=== PATIENT | female | born 1930 | race Caucasian/White ===

== ENCOUNTER 2020-12-18 13:27 | Inpatient (IN) | payer MEDICARE ==
[~2020-12-18] VITALS: Ht 145 cm; Wt 58.4 kg
[2020-12-18] MEDS ORDERED: ATROPINE INJECTION 1 MG/10 ML SYR (ABBOTT) INJ ONE (16:26)
[2020-12-18] MEDS ORDERED: EPINEPHrine 0.1 MG/ML 10 ML (HOSPIRA) SYR INJ ONE (16:26)
[2020-12-18] MEDS ORDERED: polyethylene glycoL POWDER 17 GM (MIRALAX) PACK PO PRN (16:45)
[2020-12-18] MEDS ORDERED: hydrALAZINE (APESOLINE) 20 MG/ML VIAL IV PRN (16:45)
[2020-12-18] MEDS ORDERED: MELATONIN 3 MG TABLET PO PRN (16:45)
[2020-12-18] MEDS ORDERED: ONDANSETRON 4 MG (ZOFRAN) ORAL DISSOLVE TAB PO PRN (16:45)
--- NOTE | 2020-12-18 17:04 | Consultation-Cardiology ---
HPI-Cardiology Cardiology Consultation: Date of Consultation 12/18/2020 Date of Admission 12/18/2020 Attending Physician Camille Flores MD Admitting Physician Lorelei Martinez DO Consulting Physician MAXX BONDS JR, MD HPI: Time Seen by a Provider: 16:59 Chief Complaint: Reason for consultation: Chest pain. I had the pleasure of seeing Flor in the cardiac stepdown unit at [facility] in [place], [place] this afternoon. She has a history of hypertension, aortic stenosis, and arthritis. She follows with a open pit quarry supervisor in [place], [place]. She just saw him several months ago and from her description, it sounds as though she was told she has severe aortic stenosis and may need aortic valve replacement in the not so distant future. She is supposed to have a follow-up echocardiogram in the next few months. She does not normally have chest discomfort, dyspnea or any history of syncope. Today she was at [employer] and suddenly developed severe shortness of breath at rest. Her right shoulder hurt but she was not sure if this is related to her arthritis since she frequently gets right shoulder pain. She was in touch with her son and had him take her to the emergency room in [place]. She was found to be markedly hypertensive and was started on intravenous nitroglycerin. She was subsequently transferred to our facility for further treatment and evaluation. In the outside emergency room, she was given 2 sublingual nitroglycerin and started on intravenous nitroglycerin. After receiving the sublingual nitroglycerin, her shortness of breath improved. She is not short of breath at this point in time. Her right shoulder still hurts but this is chronic. She denies any chest discomfort. She denies paroxysmal nocturnal dyspnea, orthopnea, palpitations, lightheadedness, syncope, or ankle edema. She did take all of her antihypertensive medication this morning. Certain portions of this document may have been dictated utilizing voice recognition technology. Inherent to this technology, typographical and grammatical errors may exist. As much as I am diligent to identify and correct these mistakes, some errors may remain in the document. Review of Systems-Cardiology Review of Systems Other comments Review of 10 organ systems is as per the history of present illness, otherwise negative. EBA-Qzvmup-Lldcua Hx Past Medical History PMH As described under Assessment. Family Medical History Family Medical History: The patient does not know of any family history of premature coronary artery disease. Allergies and Home Medications Allergies Coded Allergies: No Allergy Information Available (Unverified , 12/18/20) Patient Home Medication List Home Medication List Reviewed: Yes Exam Physical Exam General: Alert. No acute distress. Well nourished and appears stated age. Eye: Extraocular movements are intact. Conjunctivae are clear. There are no xanthelasma. HENT: Normocephalic. Atraumatic. Carotid pulsations 2/2 with bilateral radiated murmur. Neck: Jugular venous pressure does not appear elevated. No thyromegaly appreciated. Respiratory: Lungs have crackles at the right base. Respirations are non- labored. Breath sounds are equal. Symmetrical chest wall expansion. Cardiovascular: Normal rate. Regular rhythm. 3/6 systolic ejection murmur. No gallop. Point of maximal impulse is not appear displaced. Good pulses equal in all extremities. No edema. Gastrointestinal: Soft. Normal bowel sounds. Skin: Skin turgor is normal. There is no pallor. Musculoskeletal: No kyphosis or scoliosis appreciated. Neurologic: Alert and oriented to person, place, time. Cranial nerves 3-12 appear grossly intact. The patient has good motor tone strength in the upper and lower extremities bilaterally. Psychiatric: Cooperative. Appropriate mood & affect. ECG Impression ECG Comment Sinus rhythm with borderline left axis deviation and -[address] changes and small, nondiagnostic lateral Q waves. Diagnosis/Problems Diagnosis/Problems (1) Chest pain Assessment & Plan: When I spoke to the emergency room physician at the outside hospital, I was told the patient was having chest discomfort. Upon my interview, it sounds more as though she was just severely short of breath. I suspect she may have had flash pulmonary edema related to hypertensive urgency superimposed on probable severe aortic stenosis. Her intravenous nitroglycerin was discontinued by the rescue squad in route. I will give her an extra dose of carvedilol now. I will obtain a chest x-ray in the morning. I will also reach out to her regular open pit quarry supervisor to get a copy of the recent echocardiogram. Given that this occurred, she may need the aortic valve replacement sooner rather than later. This could still be done electively. (2) Hypertensive urgency Assessment & Plan: Her blood pressure is presently markedly elevated at 227/102 mmHg. As above, I will give her an extra dose of carvedilol now. Her outpatient antihypertensive medications have been resumed by the hospitalist. We may need to make some additional adjustments to her medication in light of the markedly elevated blood pressure. (3) Aortic stenosis Assessment & Plan: As above, I will contact her regular open pit quarry supervisor to get a copy of the recent echocardiogram. I do not see any reason to repeat the echocardiogram at the present time. (4) Abnormal ECG Assessment & Plan: She has borderline abnormal ECG as outlined above. However, there is no definitive evidence of previous myocardial infarction or ischemia at rest. If we do determine that she now needs aortic valve replacement, she would need a cardiac catheterization prior to aortic valve replacement whether or not she undergoes a SAVR or BELINDA. Given her age and underlying arthritis, she would probably be most appropriate to undergo BELINDA as opposed to SAVR. (5) Primary hypertension Assessment & Plan: We will proceed as above. MAXX BONDS JR, MD Dec 18, 2020 17:04
[2020-12-18] MEDS ORDERED: MULT-1136 PO (17:18)
[2020-12-18] MEDS ORDERED: PANT40TA52 PO (17:18)
[2020-12-18] MEDS ORDERED: ESTR10TA9 VG (17:18)
[2020-12-18] MEDS ORDERED: TURM500C4 PO (17:18)
[2020-12-18] MEDS ORDERED: MONT10TA32 PO (17:18)
[2020-12-18] MEDS ORDERED: LEVO50CA4 PO (17:18)
[2020-12-18] MEDS ORDERED: POTA10TA36 PO (17:18)
[2020-12-18] MEDS ORDERED: ASPI-999 PO (17:18)
[2020-12-18] MEDS ORDERED: FURO20TA4 PO (17:18)
[2020-12-18] MEDS ORDERED: DICY10CA12 PO (17:18)
[2020-12-18] MEDS ORDERED: FLUT9.9S NS (17:18)
[2020-12-18] MEDS ORDERED: MAGN400T50 PO (17:18)
[2020-12-18] MEDS ORDERED: OXYC1TAB15 PO (17:18)
[2020-12-18] MEDS ORDERED: CYAN50009 PO (17:18)
[2020-12-18] MEDS ORDERED: CARV6.252 PO (17:18)
[2020-12-18] MEDS ORDERED: HYDR-3924 PO (17:18)
[2020-12-18] MEDS ORDERED: LOSA100T57 PO (17:18)
[2020-12-18 19:00] VITALS: BP 131/61
[2020-12-18] MEDS: ACETAMINOPHEN 325 MG TABLET PO PRN ×2 (19:08→23:13)
[2020-12-18] MEDS ORDERED: NITROGLYCERIN 2% OINT 1 GM UNIT DOSE PACKET ONE ×2 (19:52→23:59)
[2020-12-18 20:00] VITALS: BP 119/51
[2020-12-18] MEDS: DOCUSATE SODIUM 100 MG (COLACE) CAP PO SCH (20:58)
[2020-12-18] MEDS: hydrALAZINE (APRESOLINE) 25 MG TAB PO SCH (20:59)
[2020-12-18] MEDS: SENNOSIDES 8.6 MG (SENOKOT) TAB PO SCH (20:59)
[2020-12-18 21:00] VITALS: BP 141/69
[2020-12-18 22:00] VITALS: BP 121/57
[2020-12-18 23:00] VITALS: BP 126/85
[2020-12-19] VITALS (9 sets, daily range): BP systolic 142–174; BP diastolic 58–87
[2020-12-19] MEDS ORDERED: LIDOCAINE 2% VISCOUS 15 ML UDC ONE
[2020-12-19] MEDS ORDERED: ANTACID SUSP 30 ML UDC (MYLANTA) PO ONE
[2020-12-19] MEDS ORDERED: LIDOCAINE 2% VISCOUS 15 ML UDC PO ONE
[2020-12-19] MEDS: ONDANSETRON 4 MG/2 ML (SDV) Z0FRAN IV PRN (03:38)
[2020-12-19 04:52] LABS: BASOPHILS % (AUTO) 0 % (0-10); EOSINOPHILS # (AUTO) 0.3 10^3/uL (0.0-0.3); EOSINOPHILS % (AUTO) 4 % (0-10); HEMATOCRIT 31 % (35-52); HEMOGLOBIN 9.9 g/dL (11.5-16.0); LYMPHOCYTES # (AUTO) 1.5 10^3/uL (1.0-4.0); LYMPHOCYTES % (AUTO) 21 % (12-44); MEAN CORPUSCULAR HEMOGLOBIN 30 pg (25-34); MEAN CORPUSCULAR HGB CONC 33 g/dL (32-36); MEAN CORPUSCULAR VOLUME 93 fL (80-99); MEAN PLATELET VOLUME 10.6 fL (9.0-12.2); MONOCYTES # (AUTO) 0.7 10^3/uL (0.0-1.0); MONOCYTES % (AUTO) 10 % (0-12); NEUTROPHILS # (AUTO) 4.8 10^3/uL (1.8-7.8); NEUTROPHILS % (AUTO) 65 % (42-75); PLATELET COUNT 163 10^3/uL (130-400); WHITE BLOOD COUNT 7.4 10^3/uL (4.3-11.0)
[2020-12-19 05:05] LABS: CHLORIDE 102 MMOL/L (98-107); POTASSIUM 3.8 MMOL/L (3.6-5.0); SODIUM 135 MMOL/L (135-145)
[2020-12-19 05:06] LABS: CALCIUM 9.3 MG/DL (8.5-10.1); GLUCOSE 97 MG/DL (70-105)
[2020-12-19 05:08] LABS: CARBON DIOXIDE 22 MMOL/L (21-32)
[2020-12-19 05:10] LABS: CREATININE SERUM 1.06 MG/DL (0.60-1.30); GFR ESTIMATED 49
[2020-12-19 05:11] LABS: BUN/CREATININE RATIO 25
[2020-12-19] MEDS: LEVOTHYROXINE 50 MCG (LEVOTHROID) TAB PO SCH (05:57)
[2020-12-19] MEDS: hydrALAZINE (APRESOLINE) 25 MG TAB PO SCH ×3 (05:57→20:31)
[2020-12-19] MEDS: NITROGLYCERIN 2% OINT 1 GM UNIT DOSE PACKET TOP SCH ×4 (06:04→23:55)
[2020-12-19] MEDS ORDERED: NITROGLYCERIN 2% OINT 1 GM UNIT DOSE PACKET ONE (06:04)
[2020-12-19] MEDS ORDERED: FLU QUAD HIGH DOSE 240 MCG/0.7 ML 2021-22 (FLUZONE) IM ONE (07:30)
--- NOTE | 2020-12-19 08:37 | History & Physical-Hospitalist ---
History of Present Illness HPI/Chief Complaint Pt is an 89yoCF with a PMH of HTN, OA and aortic stenosis who presented to outside ER due to shortness of breath. Patient states she was at [employer] and not exerting herself and developed severe shortness of breath very suddenly. She has had 1 episode of this in the past. She thought it was due to dehydration at that time. Her son took her to the emergency department in [facility]. She was found to be very hypertensive and started on nitroglycerin IV and transferred here for cardiology evaluation. Her symptoms have much improved and she denies any shortness of breath. She denies any chest pain at any time. She does follow with cardiology in [facility], Dr. Kong. She believes she had an echo done within the past month but is unsure of the results. Source: patient Date Seen 12/19/20 Time Seen by a Provider: 07:45 Attending Physician Camille Flores MD PCP Lorelei Martinez DO Referring Physician Date of Admission Dec 18, 2020 at 16:25 Home Medications & Allergies Home Medications Reviewed patient Home Medication Reconciliation performed by pharmacy medication reconciliations coating technician and/or nursing. Patients Allergies have been reviewed. Allergies Allergies Coded Allergies atenolol (Unverified Allergy, Unknown, 12/18/20) clindamycin (Unverified Allergy, Unknown, 12/18/20) HIVES AND RASH gabapentin (Unverified Allergy, Unknown, 12/18/20) hydrocodone (Unverified Allergy, Unknown, 12/18/20) PRURITUS, RASH lisinopril (Unverified Allergy, Unknown, 12/18/20) COUGH AND HIVES tizanidine (Unverified Allergy, Unknown, 12/18/20) amlodipine (Unverified Adverse Reaction, Unknown, 12/18/20) SWELLING OF FEET AND LEGS baclofen (Unverified Adverse Reaction, Unknown, 12/18/20) DIZZINESS, SLEEPINESS calcium (Unverified Adverse Reaction, Unknown, 12/18/20) INCREASED CALCIUM LEVELS clonidine (Unverified Adverse Reaction, Unknown, 12/18/20) DROPS BLOOD PRESSURE "TOO FAST" naproxen (Unverified Adverse Reaction, Unknown, 12/18/20) STOMACH ISSUES Past Buymaxg-Ejzzxx-Dwrmgi Hx Patient Social History Employed/Student: retired Tobacco Use?: No Smoking Status: Never a Smoker Smokeless Tobacco Frequency: Never a User Use of E-Cig and/or Vaping dev: No Substance use?: No Alcohol Use?: No Pt feels they are or have been: No Immunizations Up To Date First/Initial COVID19 Vaccinat: 05/04/2020 Second COVID19 Vaccination Abdoul: 06/01/2020 Tetanus Booster (TDap): Unknown Hepatitis A: No Hepatitis B: No Current Status status: No status: No Advance Directives: Yes Advance Directive Location: Family to bring in copy Communicates: Verbally Primary Language: Turkish Preferred Spoken Language: Turkish Is interpretation needed?: No Sensory deficits: Vision impairment, Hearing impairment Implanted or Applied Medical D: Orthopedic hardware Past Medical History Surgeries: Adenoidectomy, Appendectomy, Orthopedic (back, knees replaced), Tonsillectomy Hypertension, Valvular Heart Disease Arthritis Family Medical History Reviewed Nursing Family Hx Heart Disease (dad) Review of Systems Constitutional: No chills, No diaphoresis, No fever Respiratory: No cough, No orthopnea; short of breath Cardiovascular: No chest pain, No edema, No palpitations, No syncope Gastrointestinal: No abdominal pain, No diarrhea, No nausea, No vomiting Genitourinary: No dysuria, No frequency Musculoskeletal: joint pain (chronic, arthritis) Skin: no symptoms reported Psychiatric/Neurological: No Symptoms Reported Physical Exam Physical Exam Vital Signs Vital Signs - First Documented 12/18/20 12/18/20 17:27 18:21 Temp 36.6 Pulse Ox 97 O2 Delivery Room Air Capillary Refill : Height, Weight, BMI Height: '" Weight: lbs. oz. kg; 27.39 BMI Method: General Appearance: No Apparent Distress, WD/WN HEENT: PERRL/EOMI, Moist Mucous Membranes Neck: Normal Inspection, Supple Respiratory: Lungs Clear, No Respiratory Distress Cardiovascular: Regular Rate, Rhythm, No Edema, Systolic Murmur Gastrointestinal: Normal Bowel Sounds, Non Tender, Soft Extremity: Normal Capillary Refill, No Calf Tenderness, No Pedal Edema Neurologic/Psychiatric: Alert, Oriented x3, Normal Mood/Affect; No Aphasia, No Facial Droop Results Results/Procedures Labs Laboratory Tests 12/19/20 04:44 Patient resulted labs reviewed. Assessment/Plan Admission Diagnosis Dyspnea Admission Status: Observation Assessment and Plan Dyspnea Hypertensive Emergency HTN Likely due to hypertensive emergency with SBP of 227 on arrival Cardiology consulted telemetry Requesting records from Dr Kong Now resolved, pending echo results could possibly DC home today Continue home antihypertensives GERONIMO ALVAREZ MD Dec 19, 2020 08:37
--- NOTE | 2020-12-19 08:44 | Cardiology Progress Note ---
Progress Note-Cardiology Events since last exam Date Seen by Provider: Dec 19, 2020 Time Seen by Provider: 08:43 Events since last exam I am seeing her for chest pain and aortic stenosis. She had chest pressure and dyspnea off and on all evening. This morning she feels better. She denies palpitations, syncope, or ankle edema. Certain portions of this document may have been dictated utilizing voice recogni tion technology. Inherent to this technology, typographical and grammatical errors may exist. As much as I am diligent to identify and correct these mistakes, some errors may remain in the document. Vitals Last set of Vitals Signs Vital Signs 12/19/20 12/19/20 07:57 08:04 Temp 36.8 Pulse 59 Resp 16 B/P (MAP) 142/59 (86) Pulse Ox 94 O2 Delivery Room Air Labs Labs Laboratory Tests 12/19/20 04:44 Exam Vital Signs Vital Signs Date Time Temp Pulse Resp B/P (MAP) Pulse Ox O2 Delivery O2 Flow Rate FiO2 12/19/20 08:04 94 Room Air 12/19/20 07:57 36.8 59 16 142/59 (86) Physical Exam General: Alert. No acute distress. Eye: No xanthelasma. HENT: Normocephalic. Neck: Jugular venous pressure does not appear elevated. Respiratory: Lungs are clear to auscultation. Respirations are non-labored. Breath sounds are equal. Symmetrical chest wall expansion. Cardiovascular: Normal rate. Regular rhythm. 3/6 systolic ejection murmur. No gallop. No edema. Gastrointestinal: Soft. Normal bowel sounds. Skin: Warm. Dry. Neurologic: Alert and oriented to person, place, time. Cranial nerves 3-11 grossly intact. Psychiatric: Cooperative. Appropriate mood & affect. Labs Laboratory Tests Test 12/18/20 21:25 12/19/20 04:44 Range/Units Troponin I < 0.028 < 0.028 <0.028 NG/ML White Blood Count 7.4 4.3-11.0 10^3/uL Red Blood Count 3.29 L 3.80-5.11 10^6/uL Hemoglobin 9.9 L 11.5-16.0 g/dL Hematocrit 31 L 35-52 % Mean Corpuscular Volume 93 80-99 fL Mean Corpuscular Hemoglobin 30 25-34 pg Mean Corpuscular Hemoglobin Concent 33 32-36 g/dL Red Cell Distribution Width 12.5 10.0-14.5 % Platelet Count 163 130-400 10^3/uL Mean Platelet Volume 10.6 9.0-12.2 fL Immature Granulocyte % (Auto) 0 % Neutrophils (%) (Auto) 65 42-75 % Lymphocytes (%) (Auto) 21 12-44 % Monocytes (%) (Auto) 10 0-12 % Eosinophils (%) (Auto) 4 0-10 % Basophils (%) (Auto) 0 0-10 % Neutrophils # (Auto) 4.8 1.8-7.8 10^3/uL Lymphocytes # (Auto) 1.5 1.0-4.0 10^3/uL Monocytes # (Auto) 0.7 0.0-1.0 10^3/uL Eosinophils # (Auto) 0.3 0.0-0.3 10^3/uL Basophils # (Auto) 0.0 0.0-0.1 10^3/uL Immature Granulocyte # (Auto) 0.0 0.0-0.1 10^3/uL Sodium Level 135 135-145 MMOL/L Potassium Level 3.8 3.6-5.0 MMOL/L Chloride Level 102 98-107 MMOL/L Carbon Dioxide Level 22 21-32 MMOL/L Anion Gap 11 5-14 MMOL/L Blood Urea Nitrogen 26 H 7-18 MG/DL Creatinine 1.06 0.60-1.30 MG/DL Estimat Glomerular Filtration Rate 49 BUN/Creatinine Ratio 25 Glucose Level 97 70-105 MG/DL Calcium Level 9.3 8.5-10.1 MG/DL Diagnosis/Problems Diagnosis/Problems (1) Chest pain Assessment & Plan: Exact etiology unclear. When I spoke to her yesterday, she was more complaining of dyspnea as opposed to chest discomfort however, last night she was having chest pressure. There are no acute ischemic changes on her electrocardiogram and her troponin levels are negative. The chest discomfort and dyspnea could be related to the aortic stenosis. We are still waiting for her recent echocardiogram that was done in [place], [place] about 3 weeks ago. I will obtain a chest x-ray this morning. Given that this occurred, she may need the aortic valve replacement sooner rather than later. This could still be done electively. (2) Hypertensive urgency Assessment & Plan: Her blood pressure was markedly elevated at 227/102 mmHg. This has improved overnight. I would avoid over treating the hypertension in light of the aortic stenosis. (3) Aortic stenosis Assessment & Plan: As above, we are awaiting to get a copy of the recent echocardiogram. I do not see any reason to repeat the echocardiogram at the present time since she states her recent echocardiogram was just 3 weeks ago. (4) Abnormal ECG Assessment & Plan: She has borderline abnormal ECG as outlined above. However, there is no definitive evidence of previous myocardial infarction or ischemia at rest. If we do determine that she now needs aortic valve replacement, she would need a cardiac catheterization prior to aortic valve replacement whether or not she undergoes a SAVR or BELINDA. Given her age and underlying arthritis, she would probably be most appropriate to undergo BELINDA as opposed to SAVR. (5) Primary hypertension Assessment & Plan: We will proceed as above. (6) Chronic kidney disease, stage 3 Assessment & Plan: We will need to monitor this closely in the event that she needs a cardiac catheterization. (7) Overweight Assessment & Plan: She may benefit from a small degree of weight loss. MAXX BONDS JR, MD Dec 19, 2020 08:44
[2020-12-19] MEDS: LOSARTAN 100 MG (COZAAR) TABLET PO SCH (08:47)
[2020-12-19] MEDS: DOCUSATE SODIUM 100 MG (COLACE) CAP PO SCH ×2 (08:47→20:31)
[2020-12-19] MEDS: SENNOSIDES 8.6 MG (SENOKOT) TAB PO SCH ×2 (08:47→20:31)
[2020-12-19] MEDS: ASPIRIN 81 MG CHEW (CHILDREN'S ASA) PO SCH (08:47)
[2020-12-19 08:48] LABS: CHOLESTEROL 156 MG/DL (< 200); HDL CHOLESTEROL 33 MG/DL (40-60); TRIGLYCERIDES 174 MG/DL (<150); VLDL CHOLESTEROL 35 MG/DL (5-40)
[2020-12-19] MEDS ORDERED: PANTOPRAZOLE 40 MG (PROTONIX) TAB PO SCH (09:00)
--- NOTE | 2020-12-19 09:10 | Diagnostic Imaging Report ---
EXAMINATION: PA and lateral chest at 9:04 AM. INDICATION: Shortness of breath. COMPARISON: There are no prior studies available for comparison. FINDINGS: The heart size is at the upper limits of normal or slightly enlarged. There are mild chronic pulmonary changes evident but there is no sign of failure, pneumonia, or pleural effusion to indicate an acute abnormality. The mediastinum is not widened. The osseous structures are intact. There is orthopedic hardware overlying the lower cervical spine. There is also a total shoulder prosthesis in place on the left. In addition, there appears to have been a prior fusion of the upper lumbar spine. IMPRESSION: There is border line cardiomegaly but there is no evidence for an acute cardiopulmonary abnormality. Dictated by: Dictated on workstation # [id number]
[2020-12-19] MEDS ORDERED: LEVO-129 PO (09:24)
[2020-12-19] MEDS ORDERED: ESTR0.5T VG (09:24)
[2020-12-19] MEDS ORDERED: FLUT16SP22 NSEACH (09:24)
[2020-12-19] MEDS ORDERED: CYAN500T8 PO (09:24)
[2020-12-19] MEDS ORDERED: ASPI-1238 PO (09:24)
--- NOTE | 2020-12-19 10:05 | Physical Therapy Evaluation ---
PT Evaluation-General Medical Diagnosis Admission Date Dec 18, 2020 at 16:25 Medical Diagnosis: CP Onset Date: Dec 18, 2020 Therapy Diagnosis Therapy Diagnosis: debility/weakness Precautions Precautions/Isolations: Fall Prevention, Standard Precautions Referral Physician: Mark Reason for Referral: Evaluation/Treatment Medical History Pertinent Medical History: Arthritis, HTN Current History Transfer from [facility] ([place]) Reviewed History: Yes Social History Home: Apartment Prior Prior Level of Function SCALE: Activities may be completed with or without assistive devices. 8-Xtftagrcit-zhoautk completes the activity by him/herself with no assistance f rom a helper. 5-Set-up or Clean-up Assistance-helper sets up or cleans up; patient completes activity. [place] assists only prior to or following the activity. 4-Supervision or Touching Assistance-helper provides verbal cues and/or touching/steadying and/or contact guard assistance as patient completes activity. Assistance may be provided throughout the activity or intermittently. 3-Partial/Moderate Assistance-helper does LESS THAN HALF the effort. [place] lifts, holds or supports trunk or limbs, but provides less than half the effort. 2-Substantial/Maximal Assistance-helper does MORE THAN HALF the effort. [place] lifts or holds trunk or limbs and provides more than half the effort. 6-Xjktzpdrd-qkpfvf does ALL the effort. Patient does none of the effort to complete the activity. Or, the assistance of 2 or more helpers is required for the patient to complete the activity. If activity was not attempted, code reason: 7-Patient Refused. 9-Not Applicable-not attempted and the patient did not perform the activity before the current illness, exacerbation or injury. 10-Not Attempted due to Environmental Limitations-(lack of equipment, weather restraints, etc.). 88-Not Attempted due to Medical Conditions or Safety Concerns. Bed Mobility: 6 Transfers (B,C,W/C): 6 Gait: 6 Stairs: 6 Indoor Mobility (Ambulation): Independent Stairs: Independent Prior Device Use: cane PT Evaluation-Current Subjective Patient agrees to PT. Pain Numeric Pain Scale: 0-No Pain Location: No Pain Reported Objective Patient Orientation: Normal For Age ROM/Strength ROM Lower Extremities bilateral LE WFL Strength Lower Extremities 3+/5 grossly bilateral LE Integumentary/Posture Bowel Incontinence: No Bladder Incontinence: No Posture WFL Neuromuscular (Tone, Coordination, Reflexes) grossly intact Sensory Vision: Functional Hearing: Functional Transfers Roll Left to Right (QC): 6 Sit to Lying (QC): 6 Lying to Sitting/Side of Bed(Q: 6 Sit to Stand (QC): 4 Chair/Bup-gv-Vyibo Xfer(QC): 4 Toilet Transfer (QC): 4 SBA with OOB activity for safety Gait Does the Patient Walk?: Yes Mode of Locomotion: Walk Anticipated Mode of Locomotion: Walk Walk 10 feet (QC): 4 Walk 50 ft with 2 Turns(QC): 4 Walk 150 ft (QC): 4 Distance: 275' Gait Assistive Device: FWW Comments/Gait Description SBA/safe and functional gait sequence with no deviation Balance Sitting Static: Normal Sitting Dynamic: Normal Standing Static: Normal Standing Dynamic: Normal Assessment/Needs 89 y.o. female, will be seen short term by skilled PT to address functional strength and mobility to improve current LOF. Rehab Potential: Fair PT Mending Carrier Goals Custodial Goals PT Custodial Goals Time Frame: Dec 31, 2020 Roll Left & Right (QC): 6 Sit to Lying (QC): 6 Lying-Sitting on Side/Bed(QC): 6 Sit to Stand (QC): 6 Chair/Lpy-fj-Dwlhb Xfer(QC): 6 Toilet Transfer (QC): 6 Walk 10 feet (QC): 6 Walk 50ft with 2 Turns (QC): 6 Walk 150 ft (QC): 6 PT Plan Problem List Problem List: Activity Tolerance, Balance Treatment/Plan Treatment Plan: Continue Plan of Care Treatment Plan: Education, Functional Activity Sirena, Functional Strength, Gait, Safety, Therapeutic Exercise, Transfers Treatment Duration: Dec 31, 2020 Frequency: 6 times per week Estimated Hrs Per Day: .25 hour per day Patient and/or Family Agrees t: Yes Time/GCodes Time In: 750 Time Out: 807 Total Billed Treatment Time: 17 Total Billed Treatment 1 visit EVModC 17 min SOILA SUMNER PT Dec 19, 2020 10:05
--- NOTE | 2020-12-19 12:24 | Occupational Therapy Eval ---
OT Evaluation-General/PLF Medical Diagnosis Admission Date Dec 18, 2020 at 16:25 Medical Diagnosis: aortic stenosis Onset Date: Dec 18, 2020 Therapy Diagnosis Therapy Diagnosis: n/a Precautions Precautions/Isolations: Fall Prevention, Standard Precautions Referral Physician: Mark Kraus Reason: Evaluation/Treatment Medical History Pertinent Medical History: Arthritis, HTN Current History Pt transfer from [facility] ([place]) for further treatment and evaluation. She reports having an episode of SOB while at [facility]. In ER she was found to be hypertensive. Pt states that she lives alone in an apartment, ground level, zero steps. She was indep with ADLs, uses a cane for mobility. She receives assist with IADLs from her sons and a friend. She no longer drives. Reviewed History: Yes Social History Home: Apartment Current Living Status: Alone Entry Into Home: Level Entry ADL-Prior Level of Function SCALE: Activities may be completed with or without assistive devices. 1-Dauqhwdyuf-ucqikue completes the activity by him/herself with no assistance from a helper. 5-Set-up or Clean-up Assistance-helper sets up or cleans up; patient completes activity. Addison assists only prior to or following the activity. 4-Supervision or Touching Assistance-helper provides verbal cues and/or touching/steadying and/or contact guard assistance as patient completes activity. Assistance may be provided throughout the activity or intermittently. 3-Partial/Moderate Assistance-helper does LESS THAN HALF the effort. Addison lifts, holds or supports trunk or limbs, but provides less than half the effort. 2-Substantial/Maximal Assistance-helper does MORE THAN HALF the effort. Addison lifts or holds trunk or limbs and provides more than half the effort. 9-Mshnpizgv-idaasj does ALL the effort. Patient does none of the effort to complete the activity. Or, the assistance of 2 or more helpers is required for the patient to complete the activity. If activity was not attempted, code reason: 7-Patient Refused. 9-Not Applicable-not attempted and the patient did not perform the activity before the current illness, exacerbation or injury. 10-Not Attempted due to Environmental Limitations-(lack of equipment, weather restraints, etc.). 88-Not Attempted due to Medical Conditions or Safety Concerns. Self Care: Independent Functional Cognition: Independent DME/Equipment: Bath Chair, Grab Bars, Shower, Tall Toilet Drive Self: No OT Current Status Subjective Pt reports pain in abdominal region as 5/10. Possibly due to constipation she verbalizes. RN informed. Appearance Pt returned to supine in bed, all needs within reach, son and RN in room at OT ananda duran. Mental Status/Objective Patient Orientation: Person, Place, Time, Situation Attachments: IV, Telemetry Current Upper Extremity ROM Pt reports ROM limited by arthritis. Able to complete ~3/4 AROM R shoulder. Reduced hand/finger AROM secondary to arthritis. Education provided on use of built up handles and compensatory strategies during ADLs. HANSELE WFL ADL-Treatment On/Off Footwear (QC): 4 Toileting Hygiene (QC): 4 Supine>sit: SBA. Pt able to doff/chiquis janell socks with extra time only. She stood, ambulated to/from bathroom with SBA and use of walker. No unsteadiness exhibited. Able to lower to toilet and stand without assist. Clothing management not performed as pt only wearing gown. Pt likely does not require assist to complete as she demonstrates good/safe balance. No SOB exhibited during activity. Education provided on adaptive modifications pt can make to compensate for arthritis in hands. Education OT Patient Education: Correct positioning, Energy conservation, Modified ADL techniques, Progress toward Goal/Update tx plan, Purpose of tx/functional activities, Rehab process, Use of adapted equipment Teaching Recipient: Patient Teaching Methods: Demonstration, Discussion Response to Teaching: Verbalize Understanding, Return Demonstration OT Afloat Cryptologic Manager Goals Jail Goals 1=Demonstrate adherence to instructed precautions during ADL tasks. 2=Patient will verbalize/demonstrate understanding of assistive devices/modifications for ADL. 3=Patient will improve strength/tolerance for activity to enable patient to perform ADL's. OT Education/Plan Problem List/Assessment Assessment: No Skilled OT Needs ID'd Discharge Recommendations Plan/Recommendations: Discontinue OT Therapy Discharge Recommendati: Home & Family Treatment Plan/Plan of Care Treatment,Training & Education: Yes Patient would benefit from OT for education, treatment and training to promote independence in ADL's, mobility, safety and/or upper extremity function for ADL's. Plan of Care: ADL Retraining Treatment Duration: Dec 19, 2020 Frequency: 1 time per week Estimated Hrs Per Day: .25 hour per day Agreement: Yes Time/GCodes Start Time: 12:00 Stop Time: 12:17 Total Time Billed (hr/min): 17 Billed Treatment Time 1 visit, Ana Trujillo OT Dec 19, 2020 12:24
[2020-12-19] MEDS: ANTACID SUSP 30 ML UDC (MYLANTA) PO PRN ×2 (12:41→14:45)
[2020-12-19] MEDS: ACETAMINOPHEN 325 MG TABLET PO PRN ×2 (12:41→20:31)
[2020-12-19] MEDS ORDERED: CATHETER FLUSH 10 ML SYR IV PRN (16:30)
[2020-12-19] MEDS ORDERED: NS IV 1000 ML 1,000 ML IV ONE (16:30)
[2020-12-19] MEDS ORDERED: NITROGLYCERIN 2% OINT 1 GM UNIT DOSE PACKET TOP SCH (20:00)
[2020-12-19] MEDS: PANTOPRAZOLE 40 MG (PROTONIX) TAB PO SCH (20:31)
[2020-12-20] VITALS (24 sets, daily range): BP systolic 36–194; BP diastolic 24–122
[2020-12-20] MEDS ORDERED: NITROGLYCERIN 2% OINT 1 GM UNIT DOSE PACKET TOP SCH
[2020-12-20] MEDS: LEVOTHYROXINE 50 MCG (LEVOTHROID) TAB PO SCH (04:09)
[2020-12-20] MEDS: ACETAMINOPHEN 325 MG TABLET PO PRN (04:10)
[2020-12-20] MEDS: hydrALAZINE (APRESOLINE) 25 MG TAB PO SCH ×2 (04:10→16:33)
[2020-12-20 04:58] LABS: BASOPHILS # (AUTO) 0.1 10^3/uL (0.0-0.1); BASOPHILS % (AUTO) 1 % (0-10); EOSINOPHILS # (AUTO) 0.3 10^3/uL (0.0-0.3); EOSINOPHILS % (AUTO) 3 % (0-10); HEMATOCRIT 30 % (35-52); HEMOGLOBIN 9.8 g/dL (11.5-16.0); LYMPHOCYTES # (AUTO) 1.8 10^3/uL (1.0-4.0); LYMPHOCYTES % (AUTO) 18 % (12-44); MEAN CORPUSCULAR HEMOGLOBIN 31 pg (25-34); MEAN CORPUSCULAR HGB CONC 33 g/dL (32-36); MEAN CORPUSCULAR VOLUME 93 fL (80-99); MEAN PLATELET VOLUME 10.7 fL (9.0-12.2); MONOCYTES # (AUTO) 0.9 10^3/uL (0.0-1.0); MONOCYTES % (AUTO) 9 % (0-12); NEUTROPHILS # (AUTO) 6.8 10^3/uL (1.8-7.8); NEUTROPHILS % (AUTO) 69 % (42-75); PLATELET COUNT 166 10^3/uL (130-400); WHITE BLOOD COUNT 9.9 10^3/uL (4.3-11.0)
[2020-12-20 05:10] LABS: CALCIUM 9.2 MG/DL (8.5-10.1)
[2020-12-20 05:15] LABS: CREATININE SERUM 1.09 MG/DL (0.60-1.30)
[2020-12-20] MEDS ORDERED: NS IV 1000 ML 1,000 ML ONE (05:53)
[2020-12-20] MEDS: NITROGLYCERIN 2% OINT 1 GM UNIT DOSE PACKET TOP SCH (05:58)
[2020-12-20] MEDS ORDERED: HEParin 1000 UNIT/ML (10ML VIAL) FOR BOLUS ONE (07:33)
[2020-12-20] MEDS ORDERED: LIDOCAINE 1% INJ 20 ML 20 ML VIAL ONE ×2 (07:33→10:02)
[2020-12-20] MEDS ORDERED: HEParin (CATH LAB) 2,000 ML IV ONE (07:33)
[2020-12-20] MEDS ORDERED: VERAPAMIL 5 MG/2 ML (CALAN) VIAL IV ONE (07:38)
[2020-12-20] MEDS ORDERED: MIDAZOLAM 5 MG/5 ML (VERSED) VIAL ONE (07:38)
[2020-12-20] MEDS ORDERED: fentaNYL INJ 100 MCG/2 ML AMP ONE (07:38)
[2020-12-20] MEDS ORDERED: NITRO DRIP 25000 MCG/D5W 250 ML IV ONE (07:39)
--- NOTE | 2020-12-20 09:10 | Physical Therapy Progress Note ---
Therapy Progress Note Patient to have heart cath on this date. PT to resume in a.m. 12/21/20 SOILA SUMNER PT Dec 20, 2020 09:10
--- NOTE | 2020-12-20 09:31 | Pre-Op Note & Conscious Sedat ---
Pre-Operative Progress Note H&P Reviewed The H&P was reviewed, patient examined and no changes noted. Date H&P Reviewed: Dec 20, 2020 Time H&P Reviewed: 09:30 Pre-Op Diagnosis: Aortic stenosis and pulmonary hypertension. Conscious Sedation Pre-Proced ASA Score 2 For ASA 3 and 4: Consider anesthesia and medical clearance. Also, for patients with a history of failed moderate sedation consider anesthesia. Airway Lungs Heart ASA score ASA 1: a normal healthy patient ASA 2: a patient with a mild systemic disease (mid diabetes, controlled hypertension, obesity ASA 3: a patient with a severe systemic disease that limits activity (angina, COPD, prior Myocardial infarction) ASA 4: a patient with an incapacitating disease that is a constant threat to life (CHF, renal failure) ASA 5: a moribund patient not expected to survive 24 hrs. (ruptured aneurysm) ASA 6: a declared brain- patient whose organs are being harvested. For emergent operations, add the letter E after the classification Mallampati Classification Grade 1 Sedation Plan Analgesia, Amnesia, Plan communicated to team members, Discussed options with patient/fam, Discussed risks with patient/fam The patient is an appropriate candidate to undergo the planned procedure, sedation, and anesthesia. The patient immediately re-assessed prior to indication. MAXX BONDS JR, MD Dec 20, 2020 09:31
[2020-12-20] MEDS ORDERED: CLOPIDOGREL 300 MG (PLAVIX) TABLET PO ONE (10:45)
[2020-12-20] MEDS ORDERED: meTOprolol 5 MG/5 ML (LOPRESSOR) VIAL ONE (10:49)
[2020-12-20] MEDS ORDERED: hydrALAZINE (APESOLINE) 20 MG/ML VIAL ONE (11:01)
[2020-12-20] MEDS ORDERED: PATIENT MAY USE OWN MEDS, ALL PO SCH (11:15)
[2020-12-20] MEDS ORDERED: NITROGLYCERIN 0.4 MG SL TABS BTL 25'S SL PRN (11:15)
--- NOTE | 2020-12-20 11:18 | Cardiac Cath Report ---
CARDIAC CATHETERIZATION DATE OF PROCEDURE: 12/20/2020 INDICATION: Unstable angina. HISTORY: The patient is a 89 year old female with a history of severe aortic stenosis. She is normally followed by an outside river tester. She presented to our hospital with symptoms concerning for unstable angina. She had negative cardiac enzymes but ongoing chest discomfort. She is also known to have pulmonary hypertension. As such, she is now referred for further evaluation with a left and right heart catheterization. PROCEDURES PERFORMED: 1. Diagnostic ione coronary angiography. 2. Right radial artery angiography. 3. Drug-eluting stent placement to right coronary artery. PROCEDURE DESCRIPTION: After informed consent and in the fasting state, left heart catheterization was performed through the left femoral artery utilizing a 6 Kittitian system by percutaneous approach. I first gained access to the right radial artery but there was a branch distal to the bifurcation of the radial and ulnar arteries and the guidewires were preferentially going up into this branch as opposed to passing into the brachial artery. Therefore, I aborted any further attempts at performing the diagnostic portion of the left heart catheterization through the right radial artery. I did attempt to gain access to both the right and left femoral veins for the right heart catheterization but despite multiple attempts using both fluoroscopy and ultrasound, I was not able to access either vein. We did inadvertently access the right and left femoral arteries with the needle but no sheath was placed until we could not pass the catheter into the right brachial artery. A 6 Kittitian JR4 catheter and a 6 Kittitian JL 3.5 catheter were utilized for the diagnostic portion of the procedure. A 6 Kittitian JR4 guide catheter was utilized for the percutaneous coronary intervention. All catheters were exchanged over a guidewire. Following the procedure, a 6 Kittitian Mynx closure device was deployed at the left femoral arterial access site with good hemostasis. Following the procedure, a vascular band was applied to the radial artery access site and the sheath was removed with good hemostasis. RESULTS: HEMODYNAMICS: The aortic pressure was 194/75 mmHg. The aortic valve was not crossed.. RIGHT RADIAL ARTERY ANGIOGRAPHY: When attempting to pass a 5 Kittitian JR4 catheter into the ascending aorta, the standard pigtail catheter would not pass beyond the elbow. The wire was removed. I then positioned the 5 Kittitian JR4 catheter below the elbow. I subsequently performed an angiogram through the JR4 catheter. The right radial artery was tortuous and there was a branch distal to the bifurcation that contained a loop. However, there did appear to be normal anatomy at the bifurcation other than this branch which can soft distal to the bifurcation. I attempted to pass a Versicore wire through this area but this was also preferentially going into the small side branch. As such, the right radial approach was aborted. CORONARY ANGIOGRAPHY: Left main coronary artery: Free of significant disease. Left anterior descending coronary artery: Tortuous and there was a 40% stenosis in the midsegment just distal to several small auto wheel alignment specialist branches. Left circumflex coronary artery: Small but free of significant disease. Right coronary artery: Small but dominant and there was a 90% stenosis proximally with TYLER-3 flow. PERCUTANEOUS CORONARY INTERVENTION: Percutaneous coronary intervention was carried out on the right coronary artery through a 6 Kittitian JR4 guide catheter. I first attempted to cross the lesion with a Prowater guidewire but this was going out several small branches proximally but distal to the lesion. I subsequently attempted to pass a Whisper medium support guidewire through the stenosis but this was also going out small side branches distal to the lesion. I subsequently advanced a 2.5 x 12 mm Trek balloon over the wire and I was able to use this to direct the wire down into the distal vessel. I subsequently performed coronary angioplasty with the same balloon at a pressure of 8 dagoberto. I subsequently deployed a 2.75 x 12 mm drug-eluting Xience Estefani stent in the proximal segment at a pressure of 16 dagoberto. Following stent placement, there was 0% residual stenosis with TYLER-3 flow. IMPRESSION: 1. Severe systemic hypertension. 2. The right radial artery contains a branch distal to the bifurcation of the brachial artery. The guidewires were preferentially going up into this branch as opposed to crossing through the bifurcation and up into the brachial artery. As such, the right radial artery approach was aborted. 3. Status post drug-eluting stent placement to the proximal right coronary artery with a 2.75 x 12 mm Xience Estefani stent with 0% residual stenosis and TYLER-3 flow. 4. There is mild to moderate residual stenosis in the mid segment of the left anterior descending coronary artery. 5. The patient is known to have severe aortic stenosis with a mean gradient of 30 mmHg, a peak gradient of 56 mmHg and an aortic valve area of 0.92 cm by ech ocardiogram performed at an outside facility on 11/30/2020. 6. The patient is known to have normal left ventricular systolic function with an estimated ejection fraction of 60% by the same echocardiogram noted above. Certain portions of this document may have been dictated utilizing voice recognition technology. Inherent to this technology, typographical and grammatical errors may exist. As much as I am diligent to identify and correct these mistakes, some errors may remain in the document. MAXX BONDS JR, MD Dec 20, 2020 11:18
[2020-12-20 13:02] LABS: BASOPHILS % (AUTO) 0 % (0-10); EOSINOPHILS # (AUTO) 0.1 10^3/uL (0.0-0.3); EOSINOPHILS % (AUTO) 1 % (0-10); HEMATOCRIT 29 % (35-52); HEMOGLOBIN 9.6 g/dL (11.5-16.0); LYMPHOCYTES # (AUTO) 3.1 10^3/uL (1.0-4.0); LYMPHOCYTES % (AUTO) 29 % (12-44); MEAN CORPUSCULAR HEMOGLOBIN 31 pg (25-34); MEAN CORPUSCULAR HGB CONC 33 g/dL (32-36); MEAN CORPUSCULAR VOLUME 95 fL (80-99); MEAN PLATELET VOLUME 10.6 fL (9.0-12.2); MONOCYTES # (AUTO) 0.5 10^3/uL (0.0-1.0); MONOCYTES % (AUTO) 5 % (0-12); NEUTROPHILS # (AUTO) 6.6 10^3/uL (1.8-7.8); NEUTROPHILS % (AUTO) 63 % (42-75); PLATELET COUNT 200 10^3/uL (130-400); WHITE BLOOD COUNT 10.5 10^3/uL (4.3-11.0)
[2020-12-20] MEDS: SENNOSIDES 8.6 MG (SENOKOT) TAB PO SCH ×2 (13:03→20:31)
[2020-12-20] MEDS: ONDANSETRON 4 MG/2 ML (SDV) Z0FRAN IV PRN (13:04)
--- NOTE | 2020-12-20 13:06 | Diagnostic Imaging Report ---
Indication: CODE BLUE. Comparison: None Findings: Single view of the chest demonstrates mild cardiac enlargement without overt pulmonary edema. There is a basilar atelectasis. No pneumothorax or effusion is seen. Impression: Cardiac enlargement with low lung volumes. No pulmonary edema. Dictated by: Dictated on workstation # [id number]
--- NOTE | 2020-12-20 13:08 | Progress Note - Hospitalist ---
Subjective HPI/CC On Admission Date Seen by Provider: Dec 20, 2020 Time Seen by Provider: 07:50 Pt is an 89yoCF with a PMH of HTN, OA and aortic stenosis who presented to outside ER due to shortness of breath. Patient states she was at [employer] and not exerting herself and developed severe shortness of breath very suddenly. She has had 1 episode of this in the past. She thought it was due to dehydration at that time. Her son took her to the emergency department in [facility]. She was found to be very hypertensive and started on nitroglycerin IV and transferred here for cardiology evaluation. Her symptoms have much improved and she denies any shortness of breath. She denies any chest pain at any time. She does follow with cardiology in [facility], Dr. Kong. She believes she had an echo done within the past month but is unsure of the results. Subjective/Events-last exam Pt reports doing well. Had just gotten back from bathroom and only complaint is wrist pain. Plan is for cardiac cath later today. Objective Exam Vital Signs Vital Signs Date Time Temp Pulse Resp B/P (MAP) Pulse Ox O2 Delivery O2 Flow Rate FiO2 12/20/20 08:00 97 Room Air 12/20/20 07:47 65 16 177/69 (105) 12/20/20 04:00 36.9 Capillary Refill : General Appearance: No Apparent Distress, WD/WN Respiratory: Lungs Clear, No Respiratory Distress Cardiovascular: Regular Rate, Rhythm, Systolic Murmur Neurologic/Psychiatric: Alert, Oriented x3 Results/Procedures Lab Laboratory Tests 12/20/20 04:31 Patient resulted labs reviewed. Assessment/Plan Assessment and Plan Assess & Plan/Chief Complaint Dyspnea Hypertensive Emergency HTN Likely due to hypertensive emergency with SBP of 227 on arrival Cardiology consulted telemetry Had persistent chest pain yesterday so plan for cardiac cath today Continue home antihypertensives Update: ADI GONZALEZ called at 1235. On my arrival to room CPR in progress and 1 dose of epi had been given. BVM ventilation under way as well. Shortly after she did regain a pulse but was bradycardiac so atropine given. Dr Saldaña as bedside as well. Transfer to ICU for post code monitoring. Patient awake and alert and answering questions appropriately so no indication for therapeutic hypothermia. I updated son as well. Had just returned from sanitation laborer where intervention done to RCA. Cath team still at bedside to maintain pressure on groin. GERONIMO ALVAREZ MD Dec 20, 2020 13:08
[2020-12-20 13:14] LABS: ALBUMIN 3.2 GM/DL (3.2-4.5); INR 1.2 (0.8-1.4); POTASSIUM 3.4 MMOL/L (3.6-5.0); PROTHROMBIN TIME PATIENT 15.3 SEC (12.2-14.7)
[2020-12-20 13:15] LABS: CALCIUM 8.5 MG/DL (8.5-10.1)
[2020-12-20 13:17] LABS: TOTAL PROTEIN 5.4 GM/DL (6.4-8.2)
[2020-12-20 13:18] LABS: BILIRUBIN,TOTAL 0.5 MG/DL (0.1-1.0)
[2020-12-20 13:20] LABS: CREATININE SERUM 1.08 MG/DL (0.60-1.30); PHOSPHORUS 3.6 MG/DL (2.3-4.7)
[2020-12-20 13:23] LABS: MAGNESIUM 2.4 MG/DL (1.6-2.4)
[2020-12-20] MEDS ORDERED: DOPamine DRIP 250 ML IV ONE (13:35)
[2020-12-20] MEDS: DOPamine DRIP 250 ML IV SCH ×2 (13:42→22:41)
--- NOTE | 2020-12-20 14:09 | Anesthesia-Procedure Note ---
Procedures/Interventions Procedure Start/Stop/Diagnosis Date of Procedure: Dec 20, 2020 Start Time: 13:45 Referring Physician: Dr Flores Preprocedural Diagnosis: Hypotension Brief History Called for an arterial line placement. SBP in the 50's. Consent obtained from patients son. Attempted 20 G x1 without success and changed to 22 G with U/S. Good flash and catheter advanced with a good waveform after secured with a tegaderm. No Complications noted. Stop Time: 13:55 Postprocedural Diagnosis: Same Arterial Line Arterial Line Catheter: 22G Type: Radial Location: Left Procedure: prepped, draped in sterile fashion, good wave-form was obtained, patient tolerated procedure well, no immediate complications, post procedure area cleaned, post procedure dressing applied HUMBERTO SIEGEL DO Dec 20, 2020 14:09
[2020-12-20] MEDS ORDERED: NOREPINEPHRINE 8 MG/250 ML 250 ML IV ONE (14:15)
[2020-12-20] MEDS: NOREPINEPHRINE 8 MG/250 ML 250 ML IV SCH (14:30)
[2020-12-20] MEDS: fentaNYL INJ 100 MCG/2 ML AMP IVP PRN (15:39)
[2020-12-20] MEDS: PANTOPRAZOLE 40 MG (PROTONIX) TAB PO SCH ×2 (15:40→20:31)
[2020-12-20] MEDS: LOSARTAN 100 MG (COZAAR) TABLET PO SCH (15:40)
[2020-12-20] MEDS: ASPIRIN 81 MG CHEW (CHILDREN'S ASA) PO SCH (15:40)
[2020-12-20] MEDS: DOCUSATE SODIUM 100 MG (COLACE) CAP PO SCH ×2 (15:40→20:31)
[2020-12-20] MEDS: NS IV 1000 ML 1,000 ML IV SCH ×2 (15:41→20:35)
--- NOTE | 2020-12-20 16:51 | Diagnostic Imaging Report ---
INDICATION: Central line placement. Status post CODE BLUE. COMPARISON: Earlier same day. FINDINGS: Single frontal radiographic view of the chest was obtained and demonstrates interval placement of right internal jugular central venous catheter with tip in the low SVC. Lungs continue to show low inspiratory volumes with crowding of the central hilar structures. There is persistent moderate cardiomegaly. Pulmonary vasculature, however, is within normal limits. There is no large effusion or pneumothorax. Osseous structures are stable. IMPRESSION: 1. Moderate cardiomegaly with crowding of the central hilar structures, but no new acute cardiopulmonary process. 2. New right internal jugular central venous catheter with tip in the low SVC. Dictated by: Dictated on workstation # [id number]
[2020-12-20] MEDS: LIDOCAINE 4% (SALONPAS) PATCH TOP SCH (17:00)
--- NOTE | 2020-12-20 17:40 | Tele-ICU Consult ---
History of Present Illness History of Present Illness Date Seen by Provider: Dec 20, 2020 Time Seen by Provider: 13:54 Date of Admission Allergies and Home Medications Allergies Coded Allergies: atenolol (Unverified Allergy, Unknown, 12/18/20) clindamycin (Unverified Allergy, Unknown, 12/18/20) HIVES AND RASH gabapentin (Unverified Allergy, Unknown, 12/18/20) hydrocodone (Unverified Allergy, Unknown, 12/18/20) PRURITUS, RASH lisinopril (Unverified Allergy, Unknown, 12/18/20) COUGH AND HIVES tizanidine (Unverified Allergy, Unknown, 12/18/20) amlodipine (Unverified Adverse Reaction, Unknown, 12/18/20) SWELLING OF FEET AND LEGS baclofen (Unverified Adverse Reaction, Unknown, 12/18/20) DIZZINESS, SLEEPINESS calcium (Unverified Adverse Reaction, Unknown, 12/18/20) INCREASED CALCIUM LEVELS clonidine (Unverified Adverse Reaction, Unknown, 12/18/20) DROPS BLOOD PRESSURE "TOO FAST" naproxen (Unverified Adverse Reaction, Unknown, 12/18/20) STOMACH ISSUES Home Medications Aspirin 81 Mg Tablet.dr, 81 MG PO HS, (Reported) Carvedilol 6.25 Mg Tablet, 6.25 MG PO BID, (Reported) Cyanocobalamin (Vitamin B-12) 500 Mcg Tablet, 500 MCG PO HS, (Reported) Estradiol 0.5 Mg Tablet, 0.5 MG VG MON,WE,FR PRN for MENOPAUSE SYMPTOMS, (Reported) Fluticasone Propionate 16 Gm Leola.susp, 2 SPRAY NSEACH DAILY PRN for CONGESTION, (Reported) Furosemide 20 Mg Tablet, 20 MG PO DAILY, (Reported) Hydralazine HCl 50 Mg Tablet, 50 MG PO BID, (Reported) Levothyroxine Sodium 50 Mcg Tablet, 50 MCG PO DAILY, (Reported) Losartan Potassium 100 Mg Tablet, 100 MG PO DAILY, (Reported) Magnesium Oxide 400 Mg Tablet, 400 MG PO DAILY, (Reported) Montelukast Sodium 10 Mg Tablet, 10 MG PO DAILY PRN for ALLERGY/ASTHMA SYMPTOMS, (Reported) Multivitamin 1 Each Tablet, 1 EACH PO DAILY, (Reported) Oxycodone HCl/Acetaminophen 1 Each Tablet, 1 EACH PO Q4H PRN for PAIN-MODERATE, (Reported) Pantoprazole Sodium 40 Mg Tablet.dr, 40 MG PO HS, (Reported) Potassium Chloride 10 Meq Tab.er.prt, 10 MEQ PO DAILY, (Reported) Turmeric/Turmeric Root Extract 1 Each Capsule, 1 EACH PO TID, (Reported) Past Medical/Social/Family Hx Patient Social History Employed/Student: retired Tobacco Use?: No Smoking Status: Never a Smoker Smokeless Tobacco Frequency: Never a User Use of E-Cig and/or Vaping dev: No Substance use?: No Alcohol Use?: No Pt stated abuse/neglect: No Immunizations Up To Date Influenza Vaccine Up-to-Date: No; Not Current First/Initial COVID19 Vaccinat: 05/04/2020 Second COVID19 Vaccination Abdoul: 06/01/2020 Tetanus Booster (TDap): Unknown Hepatitis A: No Hepatitis B: No TB Skin Test: Positive Current Status status: No status: No Advance Directives: Yes Advance Directive Location: Family to bring in copy Communicates: Verbally Primary Language: Gibraltarian Preferred Spoken Language: Gibraltarian Is interpretation needed?: No Sensory deficits: Vision impairment, Hearing impairment Implanted or Applied Medical D: Orthopedic hardware Review of Systems Constitutional: see HPI Sepsis Event Evaluation Height, Weight, BMI Height: '" Weight: lbs. oz. kg; 27.39 BMI Method: Exam Exam Patient acknowledged, consented, and participated in this virtual visit which was conducted using real time audio/video Vital Signs Date Time Temp Pulse Resp B/P (MAP) Pulse Ox O2 Delivery O2 Flow Rate FiO2 12/20/20 16:00 108 15 147/56 (86) 97 Nasal Cannula 2.00 12/20/20 15:00 113 9 121/56 (77) 99 Nasal Cannula 2.00 12/20/20 14:45 108 13 114/49 (70) 99 Nasal Cannula 2.00 12/20/20 14:30 99 12/20/20 14:30 105 15 99/44 (62) 98 Nasal Cannula 2.00 12/20/20 14:15 108 5 104/45 (64) 98 Nasal Cannula 2.00 12/20/20 14:00 80 14 96/37 (56) 97 Nasal Cannula 2.00 12/20/20 13:45 80 25 79/40 (53) 97 Nasal Cannula 2.00 12/20/20 13:42 46/30 12/20/20 13:30 91 8 53/29 (37) 97 Nasal Cannula 2.00 12/20/20 13:15 105 20 36/24 (28) 96 Nasal Cannula 2.00 12/20/20 13:00 110 12/20/20 13:00 105 29 41/28 (32) 98 Nasal Cannula 2.00 12/20/20 12:45 117 13 140/116 (124) 98 Nasal Cannula 2.00 12/20/20 12:30 48 22 194/122 (146) 97 Nasal Cannula 2.00 12/20/20 12:15 64 14 99/45 (63) 94 Nasal Cannula 2.00 12/20/20 12:00 62 9 109/49 (69) 93 Nasal Cannula 2.00 12/20/20 11:45 120/54 (76) Nasal Cannula 2.00 12/20/20 08:00 97 Room Air 12/20/20 07:47 65 16 177/69 (105) 95 Room Air 12/20/20 07:00 63 12/20/20 04:00 97 Room Air 12/20/20 04:00 36.9 71 18 169/77 (107) 96 Room Air 12/20/20 01:00 61 12/20/20 00:27 96 Room Air 12/19/20 23:45 36.2 67 15 162/87 (112) 98 Room Air 12/19/20 19:40 94 Room Air 12/19/20 19:35 37.1 64 17 154/75 (101) 94 Room Air 12/19/20 19:00 68 I & O 12/20/20 07:00 Intake Total 740 ml Balance 740 ml Height & Weight Height: '" Weight: lbs. oz. kg; 27.39 BMI Method: General Appearance: No Apparent Distress, WD/WN HEENT: PERRL/EOMI, Moist Mucous Membranes Neck: Normal Inspection, Supple Respiratory: Lungs Clear, No Respiratory Distress Cardiovascular: Regular Rate, Rhythm, Systolic Murmur Extremity: Normal Capillary Refill, No Calf Tenderness, No Pedal Edema Neurologic/Psychiatric: Alert, Oriented x3 Results Lab Laboratory Tests 12/19/20 04:44 12/20/20 04:31 12/20/20 12:50 Assessment/Plan Assessment/Plan Tele-ICU Physician , consultation) Available chart/ vitals / labs / Images reviewed H&P is from ER notes Patient's information available about PMH, Shx, Fhx allergy reviewed in EMR. ROS as per chart and RN report Now in ICU Video assessment done using teleICU camera, rest of exam as per RN Discussed with RN. Consultants: Nick delacruz - for line Hospital course: 12/19 - SOB ./ ? CP - HTN emergency , pulm edema 12/20- card cath - RCA stent 12/20 - code blue - ROSC 2 min , AAO post code , not intubated A/P 12/20 - code blue during recovery time post cath - ROSC 2 min - secondary to hypotension ? -- AAO post code , not intubated - as per RN - speach might be little slurred , but no focal deficit . Might need higher ICP Hypotension/ Shock -( presented with HTN 127/102) - Cardiolgenic + ? over treating the hypertension in light of the - volume status management as per cardioloigy given severe -Hemorrahic - Hb stable , to follow - dopa , levo Flush pulm edema on presentation due to HTN emegrency + - on 2 l Now - improved withBP controll , no diuretics CAD - s/p card cath 12/20 - - RCA stent , severe - SAVR or BELINDA. - as per nubia Anemia - stable - follow Lines : to be placed (Central Line Necessity Reviewed) Byrd: + OG: Nutrition: Analgesia: Anxiety/ delirium VTE Prophylaxis: scd Stress Ulcer Prophylaxis: po Glycemic Control: Plans in collaboration with bedside consultants and IM MDs. Discussed with RN to reach out if any questions or concerns A total of 32 minutes of critical care time was devoted to this patient today, required to treat and/or prevent further deterioration of critical care condition ( as above ) . DREW CLAY MD Dec 20, 2020 17:40
[2020-12-20 17:49] LABS: BASOPHILS % (AUTO) 0 % (0-10); EOSINOPHILS % (AUTO) 0 % (0-10); HEMATOCRIT 24 % (35-52); HEMOGLOBIN 8.1 g/dL (11.5-16.0); LYMPHOCYTES # (AUTO) 0.7 10^3/uL (1.0-4.0); LYMPHOCYTES % (AUTO) 4 % (12-44); MEAN CORPUSCULAR HEMOGLOBIN 31 pg (25-34); MEAN CORPUSCULAR HGB CONC 33 g/dL (32-36); MEAN CORPUSCULAR VOLUME 94 fL (80-99); MEAN PLATELET VOLUME 10.3 fL (9.0-12.2); MONOCYTES # (AUTO) 1.6 10^3/uL (0.0-1.0); MONOCYTES % (AUTO) 8 % (0-12); NEUTROPHILS # (AUTO) 16.8 10^3/uL (1.8-7.8); NEUTROPHILS % (AUTO) 87 % (42-75); PLATELET COUNT 178 10^3/uL (130-400); WHITE BLOOD COUNT 19.2 10^3/uL (4.3-11.0)
[2020-12-20 17:58] LABS: POTASSIUM 3.1 MMOL/L (3.6-5.0)
[2020-12-20 17:59] LABS: CALCIUM 6.6 MG/DL (8.5-10.1)
[2020-12-20 18:04] LABS: CREATININE SERUM 0.8 MG/DL (0.60-1.30)
[2020-12-20 18:11] LABS: LYMPHOCYTES % (MANUAL) 3 %; MONOCYTES % (MANUAL) 5 %; NEUTROPHILS % (MANUAL) 92 %; RBC MORPH NORMAL
[2020-12-20] MEDS: MAGNESIUM 1 GM/100 ML IVPB 100 ML IV SCH ×2 (18:44→19:34)
[2020-12-20] MEDS: POTASSIUM CL 10MEQ/50ML IVPB 50 ML IV SCH ×3 (18:45→20:32)
--- NOTE | 2020-12-20 18:59 | Diagnostic Imaging Report ---
Procedure: US Bilateral lower extremity arterial. Technique: Multiple real-time grayscale images are obtained through both lower extremity arterial systems with color Doppler imaging and color Doppler spectral analysis. Date: December 20, 2020. Indication: 89-year-old female, status post calf procedure with decreasing blood pressure. Evaluation for pseudoaneurysm or hematoma. Comparison: None. Findings: Peak systolic velocity in the right common femoral artery measures 111 cm/s. The right deep femoral artery is patent with peak systolic velocity of 92 cm/s. There is a peak systolic velocity in the right proximal superficial femoral artery measuring 121 cm/s. The right common femoral vein, superficial femoral vein, and deep femoral veins are patent with unremarkable waveforms. There is no identified pseudoaneurysm or hematoma. The left common femoral artery, left deep femoral artery, and left superficial femoral arteries are patent. The left common femoral vein, superficial femoral vein, and deep femoral veins are patent with unremarkable waveforms. There is no identified pseudoaneurysm on the left. There is no hematoma on the left. Impression: 1. Patent imaged bilateral common, superficial, and deep femoral vasculature without evidence of arterial venous fistula, pseudoaneurysm, or hematoma. Dictated by: Dictated on workstation # [id number]
[2020-12-20] MEDS: oxyCODONE/APAP 7.5-325 MG (PERCOCET 7.5) TABLET PO PRN (19:20)
--- NOTE | 2020-12-20 20:49 | Consultation - Surgery ---
History of Present Illness History of Present Illness Patient Consulted On(aggie/time) 12/20/20 16:14 Date Seen by Provider: Dec 20, 2020 Time Seen by Provider: 16:04 History of Present Illness Consult requested by Dr. Gonzales for central line placement. Patient is 89-year-old female who had had cardiac catheterization with stent placement. Patient post catheterization had CODE BLUE. She had return of spontaneous circulation. She was alert and answering questions appropriately after she was resuscitated. She was transferred to the intensive care unit. She has been hypotensive and requiring pressors. Patient does not have central venous access for multiple medications and pressors. Patient is alert but is fatigued answers basic questions appropriately and she is oriented but not wanting to discuss much. Patient lying still and not having any complaints at this time. Allergies and Home Medications Allergies Coded Allergies: atenolol (Unverified Allergy, Unknown, 12/18/20) clindamycin (Unverified Allergy, Unknown, 12/18/20) HIVES AND RASH gabapentin (Unverified Allergy, Unknown, 12/18/20) hydrocodone (Unverified Allergy, Unknown, 12/18/20) PRURITUS, RASH lisinopril (Unverified Allergy, Unknown, 12/18/20) COUGH AND HIVES tizanidine (Unverified Allergy, Unknown, 12/18/20) amlodipine (Unverified Adverse Reaction, Unknown, 12/18/20) SWELLING OF FEET AND LEGS baclofen (Unverified Adverse Reaction, Unknown, 12/18/20) DIZZINESS, SLEEPINESS calcium (Unverified Adverse Reaction, Unknown, 12/18/20) INCREASED CALCIUM LEVELS clonidine (Unverified Adverse Reaction, Unknown, 12/18/20) DROPS BLOOD PRESSURE "TOO FAST" naproxen (Unverified Adverse Reaction, Unknown, 12/18/20) STOMACH ISSUES Patient Home Medication List Home Medication List Reviewed: Yes Aspirin (Aspirin EC) 81 Mg Tablet., 81 MG PO HS, (Reported) Entered as Reported by: VALE PETER on 12/19/20 9279 Last Action: Reviewed Carvedilol (Carvedilol) 6.25 Mg Tablet, 6.25 MG PO BID, (Reported) Entered as Reported by: ANTONIETTA WHITLEY on 12/18/20 2558 Last Action: Reviewed Cyanocobalamin (Vitamin B-12) (Vitamin B-12) 500 Mcg Tablet, 500 MCG PO HS, (Reported) Entered as Reported by: VALE PETER on 12/19/20923 Last Action: Reviewed Estradiol (Estradiol Tablet) 0.5 Mg Tablet, 0.5 MG VG MON,WE,FR PRN for MENOPAUSE SYMPTOMS, (Reported) Entered as Reported by: VALE PETER on 12/19/20923 Last Action: Reviewed Fluticasone Propionate (Fluticasone Propionate) 16 Gm [place].susp, 2 SPRAY NSEACH DAILY PRN for CONGESTION, (Reported) Entered as Reported by: VALE PETER on 12/19/20923 Last Action: Reviewed Furosemide (Furosemide) 20 Mg Tablet, 20 MG PO DAILY, (Reported) Entered as Reported by: ANTONIETTA WHITLEY on 12/18/201717 Last Action: Reviewed Hydralazine HCl (Hydralazine HCl) 50 Mg Tablet, 50 MG PO BID, (Reported) Entered as Reported by: ANTONIETTA WHITLEY on 12/18/201717 Last Action: Reviewed Levothyroxine Sodium (Euthyrox) 50 Mcg Tablet, 50 MCG PO DAILY, (Reported) Entered as Reported by: VALE PETER on 12/19/20923 Last Action: Reviewed Losartan Potassium (Losartan Potassium) 100 Mg Tablet, 100 MG PO DAILY, (Reported) Entered as Reported by: ANTONIETTA WHITLEY on 12/18/201717 Last Action: Reviewed Magnesium Oxide (Magnesium Oxide) 400 Mg Tablet, 400 MG PO DAILY, (Reported) Entered as Reported by: ANTONIETTA WHITLEY on 12/18/201717 Last Action: Reviewed Montelukast Sodium (Montelukast Sodium) 10 Mg Tablet, 10 MG PO DAILY PRN for ALLERGY/ASTHMA SYMPTOMS, (Reported) Entered as Reported by: ANTONIETTA WHITLEY on 12/18/201717 Last Action: Reviewed Multivitamin (Multivitamin) 1 Each Tablet, 1 EACH PO DAILY, (Reported) Entered as Reported by: ANTONIETTA WHITLEY on 12/18/201717 Last Action: Reviewed Oxycodone HCl/Acetaminophen (Oxycodon-Acetaminophen 7.5-325) 1 Each Tablet, 1 EACH PO Q4H PRN for PAIN-MODERATE, (Reported) Entered as Reported by: ANTONIETTA WHITLEY on 12/18/201717 Last Action: Reviewed Pantoprazole Sodium (Pantoprazole Sodium) 40 Mg Tablet.dr, 40 MG PO HS, (Reported) Entered as Reported by: ANTONIETTA WHITLEY on 12/18/201717 Last Action: Reviewed Potassium Chloride (Potassium Chloride) 10 Meq Tab.er.prt, 10 MEQ PO DAILY, (Reported) Entered as Reported by: ANTONIETTA WHITLEY on 12/18/201717 Last Action: Reviewed Turmeric/Turmeric Root Extract (Turmeric 500 mg Capsule) 1 Each Capsule, 1 EACH PO TID, (Reported) Entered as Reported by: ANTONIETTA WHITLEY on 12/18/201717 Last Action: Reviewed Discontinued Medications Cyanocobalamin (Vitamin B-12) (Vitamin B12) 5,000 Mcg Tab.rapdis, 5,000 MCG PO DAILY, (Reported) Discontinued Reason: Prescription changed Entered as Reported by: ANTONIETTA WHITLEY on 12/18/201717 Last Action: New Order Dicyclomine HCl (Dicyclomine HCl) 10 Mg Capsule, 10 MG PO TID, (Reported) Discontinued Reason: No Longer Taking Entered as Reported by: ANTONIETTA WHITLEY on 12/18/201717 Last Action: Discontinued Estradiol (Estradiol) 10 Mcg Tablet, 0.05 MG VG UD, (Reported) Discontinued Reason: Duplicate Order Entered as Reported by: ANTONIETTA WHITLEY on 12/18/201717 Last Action: Discontinued Fluticasone Propionate (Flonase Allergy Relief) 9.9 Ml [place].susp, 2 SPRAY NS DAILY, (Reported) Discontinued Reason: Duplicate Order Entered as Reported by: ANTONIETTA WHITLEY on 12/18/201717 Last Action: Discontinued Levothyroxine Sodium (Levothyroxine) 50 Mcg Capsule, 50 MCG PO DAILY, (Reported) Discontinued Reason: Duplicate Order Entered as Reported by: ANTONIETTA WHITLEY on 12/18/201717 Last Action: Discontinued Past Eilyhwr-Wofbsm-Mqusva Hx Patient Social History Smoking Status: Never a Smoker Alcohol Use?: No Have you traveled recently?: No Surgeries Surgeries: Adenoidectomy, Appendectomy, Orthopedic (back, knees replaced), Tonsillectomy Cardiovascular Cardiac Disorders: Hypertension, Valvular Heart Disease Musculoskeletal Musculoskeletal Disorders: Arthritis Reviewed Nursing Assessment Reviewed/Agree w Nursing PMH: Yes Family Medical History Significant Family History: Heart Disease (dad) Review of Systems-General ROS-Unable to Obtain: Patient unable to provide due to condition Physical Exam-General Problems Physical Exam Vital Signs Vital Signs - First Documented 12/18/20 12/18/20 12/20/20 17:27 18:21 11:45 Temp 36.6 Pulse Ox 97 O2 Delivery Room Air O2 Flow Rate 2.00 Capillary Refill : Less Than 3 Seconds General Appearance: no apparent distress (Lying still in bed) HEENT: PERRL/EOMI, normal ENT inspection Neck: non-tender, supple Respiratory: no respiratory distress, no accessory muscle use Cardiovascular: no JVD, tachycardia Gastrointestinal: non tender, soft Rectal: deferred Back: no CVA tenderness, no vertebral tenderness Extremities: swelling (Minimal swelling left thigh compared to right also with surrounding bruising to the left thigh, FemStop applied to the left thigh in place) Neurologic/Psychiatric: alert, other (Flat affect limited conversation but answers appropriately and oriented) Skin: ecchymosis (Left thigh), pallor Lymphatic: no adenopathy Data Review Labs Laboratory Tests 12/20/20 04:31: White Blood Count 9.9, Red Blood Count 3.19L, Hemoglobin 9.8L, Hematocrit 30L, Mean Corpuscular Volume 93, Mean Corpuscular Hemoglobin 31, Mean Corpuscular Hemoglobin Concent 33, Red Cell Distribution Width 12.2, Platelet Count 166, Mean Platelet Volume 10.7, Immature Granulocyte % (Auto) 0, Neutrophils (%) (Auto) 69, Lymphocytes (%) (Auto) 18, Monocytes (%) (Auto) 9, Eosinophils (%) (Auto) 3, Basophils (%) (Auto) 1, Neutrophils # (Auto) 6.8, Lymphocytes # (Auto) 1.8, Monocytes # (Auto) 0.9, Eosinophils # (Auto) 0.3, Basophils # (Auto) 0.1, Immature Granulocyte # (Auto) 0.0, Sodium Level 136, Potassium Level 4.0, Chloride Level 103, Carbon Dioxide Level 22, Anion Gap 11, Blood Urea Nitrogen 21H, Creatinine 1.09, Estimat Glomerular Filtration Rate 47, BUN/Creatinine Ratio 19, Glucose Level 91, Calcium Level 9.2 12/20/20 12:50: White Blood Count 10.5, Red Blood Count 3.06L, Hemoglobin 9.6L, Hematocrit 29L, Mean Corpuscular Volume 95, Mean Corpuscular Hemoglobin 31, Mean Corpuscular Hemoglobin Concent 33, Red Cell Distribution Width 12.5, Platelet Count 200, Mean Platelet Volume 10.6, Immature Granulocyte % (Auto) 2, Neutrophils (%) (Auto) 63, Lymphocytes (%) (Auto) 29, Monocytes (%) (Auto) 5, Eosinophils (%) (Auto) 1, Basophils (%) (Auto) 0, Neutrophils # (Auto) 6.6, Lymphocytes # (Auto) 3.1, Monocytes # (Auto) 0.5, Eosinophils # (Auto) 0.1, Basophils # (Auto) 0.0, Immature Granulocyte # (Auto) 0.2H, Sodium Level 136, Potassium Level 3.4L, Chloride Level 105, Carbon Dioxide Level 22, Anion Gap 9, Blood Urea Nitrogen 18, Creatinine 1.08, Estimat Glomerular Filtration Rate 48, BUN/Creatinine Ratio 17, Glucose Level 150H, Calcium Level 8.5, Prothrombin Time 15.3H, INR Comment 1.2, Corrected Calcium 9.1, Phosphorus Level 3.6, Magnesium Level 2.4, Total Bilirubin 0.5, Aspartate Amino Transf (AST/SGOT) 24, Alanine Aminotransferase (ALT/SGPT) 14, Alkaline Phosphatase 38L, Total Protein 5.4L, Albumin 3.2 12/20/20 17:45: White Blood Count 19.2H, Red Blood Count 2.58L, Hemoglobin 8.1L, Hematocrit 24L, Mean Corpuscular Volume 94, Mean Corpuscular Hemoglobin 31, Mean Corpuscular Hemoglobin Concent 33, Red Cell Distribution Width 12.5, Platelet Count 178, Mean Platelet Volume 10.3, Immature Granulocyte % (Auto) 1, Neutrophils (%) (Auto) 87H, Lymphocytes (%) (Auto) 4L, Monocytes (%) (Auto) 8, Eosinophils (%) (Auto) 0, Basophils (%) (Auto) 0, Neutrophils # (Auto) 16.8H, Lymphocytes # (Auto) 0.7L, Monocytes # (Auto) 1.6H, Eosinophils # (Auto) 0.0, Basophils # (Auto) 0.0, Immature Granulocyte # (Auto) 0.1, Sodium Level 138, Potassium Level 3.1L, Chloride Level 115#H, Carbon Dioxide Level 18L, Anion Gap 5, Blood Urea Nitrogen 18, Creatinine 0.80, Estimat Glomerular Filtration Rate 68, BUN/Creatin ine Ratio 23, Glucose Level 156H, Calcium Level 6.6L, Neutrophils % (Manual) 92, Lymphocytes % (Manual) 3, Monocytes % (Manual) 5, Blood Morphology Comment NORMAL Assessment/Plan Assessment/Plan Assessment/Plan Post CODE BLUE Status post cardiac catheterization Hypotension Poor venous access Patient is 89-year-old female who is post code and transferred to the ICU. She is hypotensive and is requiring pressors at this time. Is been asked that a central line be placed which I agree with placement. Consent was obtained from the son. Patient to have central line placed. Chest x-ray to follow. Has some swelling to the left thigh nurses are going to continue to monitor and notify cardiology if it appears to be expanding. Will sign off please call if needed. Procedure: Ultrasound-guided right internal jugular vein central line placement. The right neck was prepped and draped in a sterile fashion timeout was performed. Under ultrasound guidance 3 mL of 1% lidocaine was used anesthetize the area. The right internal jugular was then accessed using ultrasound guidance and dark nonpulsatile blood was withdrawn. The guidewire was inserted through the needle and the needle was removed. An 11 blade scalpel was used to make a small skin incision at the insertion point. The dilator was then advanced over the wire and removed. The triple-lumen catheter was then advanced over the wire and the wire was removed. All ports were accessed and flushed without difficulty. The catheter was then secured using 3-0 silk suture. The areas washed and dried and sterile bandage was applied. Patient tolerated procedure well with any complications chest x-ray pending. LISA VIDAL DO Dec 20, 2020 20:49
[2020-12-20 21:43] LABS: BASOPHILS % (AUTO) 0 % (0-10); EOSINOPHILS % (AUTO) 0 % (0-10); HEMATOCRIT 26 % (35-52); LYMPHOCYTES # (AUTO) 1.1 10^3/uL (1.0-4.0); LYMPHOCYTES % (AUTO) 5 % (12-44); MEAN CORPUSCULAR HEMOGLOBIN 31 pg (25-34); MEAN CORPUSCULAR HGB CONC 35 g/dL (32-36); MEAN CORPUSCULAR VOLUME 89 fL (80-99); MEAN PLATELET VOLUME 10.6 fL (9.0-12.2); MONOCYTES # (AUTO) 1.2 10^3/uL (0.0-1.0); MONOCYTES % (AUTO) 6 % (0-12); NEUTROPHILS # (AUTO) 19.3 10^3/uL (1.8-7.8); NEUTROPHILS % (AUTO) 89 % (42-75); PLATELET COUNT 204 10^3/uL (130-400); WHITE BLOOD COUNT 21.7 10^3/uL (4.3-11.0)
[2020-12-21] VITALS (24 sets, daily range): BP systolic 107–153; BP diastolic 36–78
[2020-12-21 04:16] LABS: BASOPHILS % (AUTO) 0 % (0-10); EOSINOPHILS # (AUTO) 0.1 10^3/uL (0.0-0.3); EOSINOPHILS % (AUTO) 0 % (0-10); HEMATOCRIT 26 % (35-52); HEMOGLOBIN 8.6 g/dL (11.5-16.0); LYMPHOCYTES # (AUTO) 1.8 10^3/uL (1.0-4.0); LYMPHOCYTES % (AUTO) 11 % (12-44); MEAN CORPUSCULAR HEMOGLOBIN 31 pg (25-34); MEAN CORPUSCULAR HGB CONC 33 g/dL (32-36); MEAN CORPUSCULAR VOLUME 93 fL (80-99); MEAN PLATELET VOLUME 10.3 fL (9.0-12.2); MONOCYTES % (AUTO) 7 % (0-12); NEUTROPHILS # (AUTO) 12.8 10^3/uL (1.8-7.8); NEUTROPHILS % (AUTO) 81 % (42-75); PLATELET COUNT 182 10^3/uL (130-400); WHITE BLOOD COUNT 15.7 10^3/uL (4.3-11.0)
[2020-12-21 04:28] LABS: POTASSIUM 4.5 MMOL/L (3.6-5.0)
[2020-12-21 04:29] LABS: CALCIUM 8.5 MG/DL (8.5-10.1)
[2020-12-21 04:33] LABS: CREATININE SERUM 1.17 MG/DL (0.60-1.30); PHOSPHORUS 4.3 MG/DL (2.3-4.7)
[2020-12-21 04:35] LABS: MAGNESIUM 3.3 MG/DL (1.6-2.4)
[2020-12-21] MEDS: LEVOTHYROXINE 50 MCG (LEVOTHROID) TAB PO SCH (05:55)
[2020-12-21] MEDS: NS IV 1000 ML 1,000 ML IV SCH ×2 (07:17→13:14)
[2020-12-21] MEDS: LIDOCAINE 4% (SALONPAS) PATCH TOP SCH (08:00)
[2020-12-21] MEDS: PANTOPRAZOLE 40 MG (PROTONIX) TAB PO SCH ×2 (08:00→19:39)
[2020-12-21] MEDS: DOCUSATE SODIUM 100 MG (COLACE) CAP PO SCH ×2 (08:00→19:39)
[2020-12-21] MEDS: ASPIRIN 81 MG CHEW (CHILDREN'S ASA) PO SCH (08:00)
[2020-12-21] MEDS: CLOPIDOGREL 75 MG (PLAVIX) TABLET PO SCH (08:00)
[2020-12-21] MEDS: SENNOSIDES 8.6 MG (SENOKOT) TAB PO SCH ×2 (08:00→19:40)
--- NOTE | 2020-12-21 09:06 | Progress Note - Hospitalist ---
Subjective HPI/CC On Admission Date Seen by Provider: Dec 21, 2020 Time Seen by Provider: 09:02 Pt is an 89yoCF with a PMH of HTN, OA and aortic stenosis who presented to outside ER due to shortness of breath. Patient states she was at muslim and not exerting herself and developed severe shortness of breath very suddenly. She has had 1 episode of this in the past. She thought it was due to dehydration at that time. Her son took her to the emergency department in [facility]. She was found to be very hypertensive and started on nitroglycerin IV and transferred here for cardiology evaluation. Her symptoms have much improved and she denies any shortness of breath. She denies any chest pain at any time. She does follow with cardiology in [facility], Dr. Kong. She believes she had an echo done within the past month but is unsure of the results. Subjective/Events-last exam Pt reports doing well. No complaints. has some chest soreness from compressions. Only request is a sip of water. Objective Exam Vital Signs Vital Signs Date Time Temp Pulse Resp B/P (MAP) Pulse Ox O2 Delivery O2 Flow Rate FiO2 12/21/20 08:08 96 Room Air 12/21/20 07:45 37.0 12/21/20 07:00 62 12/21/20 07:00 16 129/45 (73) 12/20/20 18:00 2.00 Capillary Refill : Less Than 3 Seconds General Appearance: No Apparent Distress, WD/WN Respiratory: Lungs Clear, No Respiratory Distress Cardiovascular: Regular Rate, Rhythm, Systolic Murmur Gastrointestinal: Normal Bowel Sounds, Soft Neurologic/Psychiatric: Alert, Oriented x3 Results/Procedures Lab Laboratory Tests 12/20/20 12:50 12/20/20 17:45 12/20/20 21:20 12/21/20 04:10 Patient resulted labs reviewed. Assessment/Plan Assessment and Plan Assess & Plan/Chief Complaint Post cardiac arrest bradyacardia to PEA yesterday Very short code with ROSC obtained and mentation intact Currently on dopamine per cardiology, now off levophed CAD Hypertensive Emergency HTN Cardiology consulted telemetry s/p cardiac cath yesterday with intervention to RCA Continue home antihypertensives Had hematoma at cath site yesterday Continue plavix and asa DVT ppx: SCDs only, lovenox held for hematoma Diagnosis/Problems Diagnosis/Problems (1) CAD (coronary artery disease) (2) Hypothyroidism (3) Cardiac arrest (4) Chronic kidney disease, stage 3 (5) Primary hypertension (6) Hypertensive urgency (7) Aortic stenosis (8) Chest pain GERONIMO ALVAREZ MD Dec 21, 2020 09:06
--- NOTE | 2020-12-21 09:20 | Tele-ICU Progress Note ---
Subjective Date Seen by a Provider: Dec 21, 2020 Time Seen by a Provider: 09:20 Sepsis Event Evaluation Height, Weight, BMI Height: '" Weight: lbs. oz. kg; 27.39 BMI Method: Exam Exam Patient acknowledged, consented, and participated in this virtual visit which was conducted using real time audio/video Vital Signs Date Time Temp Pulse Resp B/P (MAP) Pulse Ox O2 Delivery O2 Flow Rate FiO2 12/21/20 09:00 64 12 125/43 (70) 97 Room Air 12/21/20 08:08 96 Room Air 12/21/20 08:00 74 9 128/59 (82) 95 Room Air 12/21/20 07:45 37.0 12/21/20 07:00 62 12/21/20 07:00 62 16 129/45 (73) 92 Room Air 12/21/20 06:00 61 19 122/44 (70) 95 Room Air 12/21/20 05:00 64 16 148/48 (81) 93 Room Air 12/21/20 04:24 37.0 Room Air 12/21/20 04:00 68 17 135/51 (79) 90 Room Air 12/21/20 04:00 97 Room Air 12/21/20 03:00 61 18 123/44 (70) 92 Room Air 12/21/20 02:00 63 18 108/43 (64) 92 Room Air 12/21/20 01:00 64 12/21/20 01:00 64 18 131/47 (75) 93 Room Air 12/21/20 00:00 98 Room Air 12/21/20 00:00 66 38 118/46 (70) 94 Room Air 12/20/20 23:17 37.4 Room Air 12/20/20 23:00 56 16 120/45 (70) 94 Room Air 12/20/20 22:41 122/47 12/20/20 22:00 60 18 132/51 (78) 93 Room Air 12/20/20 21:00 59 18 108/44 (65) 92 Room Air 12/20/20 20:01 54 21 103/40 (61) 97 Room Air 12/20/20 20:00 95 Room Air 12/20/20 19:41 37.6 12/20/20 19:00 80 12/20/20 19:00 80 21 157/59 (91) 98 Room Air 12/20/20 19:00 Room Air 12/20/20 18:00 90 14 135/59 (84) 98 Nasal Cannula 2.00 12/20/20 17:00 89 19 119/54 (75) 96 Nasal Cannula 2.00 12/20/20 16:00 97 Nasal Cannula 2.00 12/20/20 16:00 108 15 147/56 (86) 97 Nasal Cannula 2.00 12/20/20 15:00 113 9 121/56 (77) 99 Nasal Cannula 2.00 12/20/20 14:45 108 13 114/49 (70) 99 Nasal Cannula 2.00 12/20/20 14:30 99 12/20/20 14:30 105 15 99/44 (62) 98 Nasal Cannula 2.00 12/20/20 14:15 108 5 104/45 (64) 98 Nasal Cannula 2.00 12/20/20 14:00 80 14 96/37 (56) 97 Nasal Cannula 2.00 12/20/20 13:45 80 25 79/40 (53) 97 Nasal Cannula 2.00 12/20/20 13:42 46/30 12/20/20 13:30 91 8 53/29 (37) 97 Nasal Cannula 2.00 12/20/20 13:15 105 20 36/24 (28) 96 Nasal Cannula 2.00 12/20/20 13:00 110 12/20/20 13:00 105 29 41/28 (32) 98 Nasal Cannula 2.00 12/20/20 12:45 117 13 140/116 (124) 98 Nasal Cannula 2.00 12/20/20 12:30 48 22 194/122 (146) 97 Nasal Cannula 2.00 12/20/20 12:15 64 14 99/45 (63) 94 Nasal Cannula 2.00 12/20/20 12:00 97 Room Air 12/20/20 12:00 62 9 109/49 (69) 93 Nasal Cannula 2.00 12/20/20 11:45 120/54 (76) Nasal Cannula 2.00 I & O 12/21/20 07:00 Intake Total 970 ml Output Total 800 ml Balance 170 ml Height & Weight Height: '" Weight: lbs. oz. kg; 27.39 BMI Method: General Appearance: No Apparent Distress, WD/WN HEENT: PERRL/EOMI, Moist Mucous Membranes Neck: Normal Inspection, Supple Respiratory: Lungs Clear, No Respiratory Distress Cardiovascular: Regular Rate, Rhythm, Systolic Murmur Capillary Refill: Less Than 3 Seconds Gastrointestinal: non tender, soft Extremity: Normal Capillary Refill, No Calf Tenderness, No Pedal Edema Neurologic/Psychiatric: Alert, Oriented x3 Results Lab Laboratory Tests 12/20/20 04:31 12/20/20 12:50 12/20/20 17:45 12/20/20 21:20 12/21/20 04:10 Assessment/Plan Assessment/Plan Available chart/ vitals / labs / Images reviewed Video assessment done using teleICU camera, rest of exam as per RN Discussed with RN , EXAM PER RN Events overnight : FEBRILE I/O = pos 300 RA Drips: dopa Pressors: dopa . levo OFF Consultants: nubia Sx - for line Hospital course: 12/19 - SOB ./ ? CP - HTN emergency , pulm edema 12/20- card cath - RCA stent 12/20 - code blue - ROSC 2 min , AAO post code , not intubated A/P 12/20 - code blue during recovery time post cath - ROSC 2 min - secondary to hypotension ? -- AAO post code, no neuro deficit Hypotension/ Shock post cath - Cardiolgenic + ? over treating the hypertension in light of the - volume status management as per cardioloigy given severe - not hemorrahic - Hb stable , to follow - US done - No pseudoaneurysm or hematoma at cath site - dopa 8 , levo off Fever - new 12/21 - will collect UA and check PCT - off abx now - follow closely Hypertension on admission --( presented with HTN 127/102) -BP management as per cardioloigy given severe Flush pulm edema on presentation due to HTN emegrency + - on RA now - improved withBP controll , no diuretics CAD - s/p card cath 12/20 - - RCA stent , severe - SAVR or BELINDA. ? timing ? - as per nubia Anemia - stable - follow Lines : R IJ 12/20 (Central Line Necessity Reviewed) Byrd: + OG: Nutrition: PO Analgesia: Anxiety/ delirium VTE Prophylaxis: scd Stress Ulcer Prophylaxis: po Glycemic Control: Plans in collaboration with bedside consultants and IM MDs. Discussed with RN to reach out if any questions or concerns A total of 25 minutes of critical care time was devoted to this patient today, required to treat and/or prevent further deterioration of critical care condition ( as above ) . DREW CLAY MD Dec 21, 2020 09:20
--- NOTE | 2020-12-21 09:47 | Cardiology Progress Note ---
Progress Note-Cardiology Events since last exam Date Seen by Provider: Dec 21, 2020 Time Seen by Provider: 09:43 Events since last exam I am seeing her for coronary artery disease and aortic stenosis. She is com pletely awake and alert today. Her chest is sore if she coughs or takes a deep breath. She denies any of the previous chest tightness that she was complaining of prior to her coronary stent. She denies dyspnea, palpitations, syncope, or ankle edema. Her norepinephrine was discontinued this morning. She remains on dopamine at 8 mcg. Certain portions of this document may have been dictated utilizing voice recognition technology. Inherent to this technology, typographical and grammatical errors may exist. As much as I am diligent to identify and correct these mistakes, some errors may remain in the document. Vitals Last set of Vitals Signs Vital Signs 12/20/20 12/21/20 12/21/20 12/21/20 12/21/20 18:00 11:40 12:00 12:48 13:15 Temp 37.1 Pulse 64 Resp 17 B/P (MAP) 110/31 Pulse Ox 96 O2 Delivery Room Air O2 Flow Rate 2.00 Labs Labs Laboratory Tests 12/20/20 17:45 12/20/20 21:20 12/21/20 04:10 Exam Vital Signs Vital Signs Date Time Temp Pulse Resp B/P (MAP) Pulse Ox O2 Delivery O2 Flow Rate FiO2 12/21/20 13:15 110/31 12/21/20 12:48 96 Room Air 12/21/20 12:00 64 17 12/21/20 11:40 37.1 12/20/20 18:00 2.00 Physical Exam General: Alert. No acute distress. Eye: No xanthelasma. HENT: Normocephalic. Neck: Jugular venous pressure does not appear elevated. Respiratory: Lungs are clear to auscultation. Respirations are non-labored. Breath sounds are equal. Symmetrical chest wall expansion. Cardiovascular: Normal rate. Regular rhythm. 3/6 high-pitched systolic ejection murmur. No gallop. No edema. Gastrointestinal: Soft. Normal bowel sounds. Skin: Warm. Dry. Neurologic: Alert and oriented to person, place, time. Cranial nerves 3-11 grossly intact. Psychiatric: Cooperative. Appropriate mood & affect. Labs Laboratory Tests Test 12/20/20 17:45 10/19/21 21:20 12/21/20 04:10 12/21/20 10:20 Range/Units White Blood Count 19.2 H 21.7 H 15.7 H 4.3-11.0 10^3/uL Red Blood Count 2.58 L 2.91 L 2.78 L 3.80-5.11 10^6/uL Hemoglobin 8.1 L 9.0 L 8.6 L 11.5-16.0 g/dL Hematocrit 24 L 26 L 26 L 35-52 % Mean Corpuscular Volume 94 89 93 80-99 fL Mean Corpuscular Hemoglobin 31 31 31 25-34 pg Mean Corpuscular Hemoglobin Concent 33 35 33 32-36 g/dL Red Cell Distribution Width 12.5 12.5 12.6 10.0-14.5 % Platelet Count 178 204 182 130-400 10^3/uL Mean Platelet Volume 10.3 10.6 10.3 9.0-12.2 fL Immature Granulocyte % (Auto) 1 1 0 % Neutrophils (%) (Auto) 87 H 89 H 81 H 42-75 % Lymphocytes (%) (Auto) 4 L 5 L 11 L 12-44 % Monocytes (%) (Auto) 8 6 7 0-12 % Eosinophils (%) (Auto) 0 0 0 0-10 % Basophils (%) (Auto) 0 0 0 0-10 % Neutrophils # (Auto) 16.8 H 19.3 H 12.8 H 1.8-7.8 10^3/uL Lymphocytes # (Auto) 0.7 L 1.1 1.8 1.0-4.0 10^3/uL Monocytes # (Auto) 1.6 H 1.2 H 1.0 0.0-1.0 10^3/uL Eosinophils # (Auto) 0.0 0.0 0.1 0.0-0.3 10^3/uL Basophils # (Auto) 0.0 0.0 0.0 0.0-0.1 10^3/uL Immature Granulocyte # (Auto) 0.1 0.1 0.1 0.0-0.1 10^3/uL Neutrophils % (Manual) 92 % Lymphocytes % (Manual) 3 % Monocytes % (Manual) 5 % Blood Morphology Comment NORMAL Sodium Level 138 136 135-145 MMOL/L Potassium Level 3.1 L 4.5 3.6-5.0 MMOL/L Chloride Level 115 #H 106 98-107 MMOL/L Carbon Dioxide Level 18 L 19 L 21-32 MMOL/L Anion Gap 5 11 5-14 MMOL/L Blood Urea Nitrogen 18 23 H 7-18 MG/DL Creatinine 0.80 1.17 0.60-1.30 MG/DL Estimat Glomerular Filtration Rate 68 44 BUN/Creatinine Ratio 23 20 Glucose Level 156 H 124 H 70-105 MG/DL Calcium Level 6.6 L 8.5 8.5-10.1 MG/DL Phosphorus Level 4.3 2.3-4.7 MG/DL Magnesium Level 3.3 H 1.6-2.4 MG/DL Procalcitonin 4.45 H <0.10 NG/ML Urine Color YELLOW Urine Clarity SL CLOUDY Urine pH 6.0 5-9 Urine Specific [place] 1.015 L 1.016-1.022 Urine Protein NEGATIVE NEGATIVE Urine Glucose (UA) NEGATIVE NEGATIVE Urine Ketones NEGATIVE NEGATIVE Urine Nitrite NEGATIVE NEGATIVE Urine Bilirubin NEGATIVE NEGATIVE Urine Urobilinogen 0.2 < = 1.0 MG/DL Urine Leukocyte Esterase 1+ H NEGATIVE Urine RBC (Auto) 3+ H NEGATIVE Urine RBC 25-50 H /HPF Urine WBC 10-25 H /HPF Urine Crystals NONE /LPF Urine Bacteria FEW H /HPF Urine Casts NONE /LPF Urine Mucus NEGATIVE /LPF Urine Culture Indicated YES Diagnosis/Problems Diagnosis/Problems (1) Coronary artery disease with unstable angina pectoris Assessment & Plan: She is now status post drug-eluting stent placement to the p roximal right coronary artery. She has mild disease in the left anterior descending coronary artery that can be treated medically. Unfortunately, she developed cardiac arrest following the procedure. I am not entirely sure of why this occurred. However, she is now continuing to improve. She will need to continue dual antiplatelet therapy for a minimum of 3 months time. (2) Cardiac arrest Assessment & Plan: Soon after returning to her room following the procedure, the patient developed bradycardic cardiac arrest and required CPR for approximately 2 minutes. She was given 1 dose of atropine and she regained spontaneous circulation. However, she was then in shock and overnight required intravenous dopamine and norepinephrine. The norepinephrine has now been weaned off. I suspect she may have had a profound vagal spell possibly related to hematoma at the left femoral access site. (3) Cardiogenic shock Assessment & Plan: Exact etiology unclear. Her hemoglobin level did not drop significantly. She does have severe aortic stenosis but a normal ejection fraction. Given the degree of aortic stenosis in the setting of cardiac arrest, this may have caused the cardiogenic shock. Fortunately, this seems to be turning around. We will continue to wean vasopressors as tolerated. (4) Pericardial effusion Assessment & Plan: She had a small pericardial effusion following the procedure. This was not mentioned on her recent echocardiogram from the outside facility several weeks ago. I did not see any obvious coronary perforation. Exact etiology of the effusion is unclear. She had a follow-up echocardiogram this morning that shows a similar sized pericardial effusion. This will likely resolve spontaneously. (5) Aortic stenosis Assessment & Plan: She has severe aortic stenosis. This is being followed by an outside pipe line walker. (6) Primary hypertension Assessment & Plan: We will resume her antihypertensive medication when her blood pressure will tolerate. These medications are presently on hold due to the cardiogenic shock. (7) Chronic kidney disease, stage 3 Assessment & Plan: We will need to monitor this closely following the cardiac catheterization and cardiogenic shock. MAXX BONDS JR, MD Dec 21, 2020 09:47
[2020-12-21 10:30] LABS: BILIRUBIN,URINE NEGATIVE (NEGATIVE); CLARITY,URINE SL CLOUDY; COLOR,URINE YELLOW; GLUCOSE, URINE (UA) NEGATIVE (NEGATIVE); KETONES,URINE NEGATIVE (NEGATIVE); LEUKOCYTE ESTERASE ,URINE 1+ (NEGATIVE); NITRITE,URINE NEGATIVE (NEGATIVE); PROTEIN,URINE NEGATIVE (NEGATIVE)
[2020-12-21 10:42] LABS: BACTERIA,URINE FEW /HPF; RBC,URINE 25-50 /HPF
[2020-12-21] MEDS: ONDANSETRON 4 MG/2 ML (SDV) Z0FRAN IV PRN (10:51)
[2020-12-21] MEDS: DOPamine DRIP 250 ML IV SCH (13:15)
[2020-12-21] MEDS: fentaNYL INJ 100 MCG/2 ML AMP IVP PRN (14:05)
[2020-12-21] MEDS: cefTRIAXone 1,000 MG in WATER (STERILE) FOR INJECTION 10 ML IV SCH (15:10)
--- NOTE | 2020-12-21 16:35 | Physical Therapy Evaluation ---
PT Evaluation-General Medical Diagnosis Admission Date Dec 20, 2020 at 13:00 Medical Diagnosis: aortic stenosis Onset Date: Dec 18, 2020 Therapy Diagnosis Therapy Diagnosis: Gait deficit, strength deficit Precautions Precautions/Isolations: Fall Prevention, Standard Precautions Referral Physician: Mrak Reason for Referral: Evaluation/Treatment Medical History Pertinent Medical History: Arthritis, HTN Reviewed History: Yes Social History Home: Apartment Current Living Status: Alone Entry Into Home: Level Entry Prior Prior Level of Function SCALE: Activities may be completed with or without assistive devices. 3-Xtpxxsmppq-vmbadko completes the activity by him/herself with no assistance from a helper. 5-Set-up or Clean-up Assistance-helper sets up or cleans up; patient completes activity. [place] assists only prior to or following the activity. 4-Supervision or Touching Assistance-helper provides verbal cues and/or touching/steadying and/or contact guard assistance as patient completes activity. Assistance may be provided throughout the activity or intermittently. 3-Partial/Moderate Assistance-helper does LESS THAN HALF the effort. [place] lifts, holds or supports trunk or limbs, but provides less than half the effort. 2-Substantial/Maximal Assistance-helper does MORE THAN HALF the effort. [place] lifts or holds trunk or limbs and provides more than half the effort. 4-Kmmjsppji-yjfemx does ALL the effort. Patient does none of the effort to complete the activity. Or, the assistance of 2 or more helpers is required for the patient to complete the activity. If activity was not attempted, code reason: 7-Patient Refused. 9-Not Applicable-not attempted and the patient did not perform the activity before the current illness, exacerbation or injury. 10-Not Attempted due to Environmental Limitations-(lack of equipment, weather restraints, etc.). 88-Not Attempted due to Medical Conditions or Safety Concerns. Bed Mobility: 6 Transfers (B,C,W/C): 6 Gait: 6 Stairs: 6 Indoor Mobility (Ambulation): Independent Stairs: Independent Prior Devices Use: None Prior Device Use: cane PT Evaluation-Current Subjective Patient reports 5/10 pain in her back. Attempted evaluation this morning but US tech came in. Patient rated pain at that time at 2/10 Objective Patient Orientation: Person, Place, Time, Situation Attachments: SCD's, Byrd Catheter, IV ROM/Strength ROM Lower Extremities WFLs bilaterally all planes Strength Lower Extremities 3+/5 bilaterally all planes Integumentary/Posture Bowel Incontinence: No Bladder Incontinence: No Sensory Vision: Functional Hearing: Functional Transfers Roll Left to Right (QC): 4 Sit to Lying (QC): 4 Lying to Sitting/Side of Bed(Q: 4 Sit to Stand (QC): 4 Chair/Bfj-vj-Tglsf Xfer(QC): 4 Gait Does the Patient Walk?: Yes Mode of Locomotion: Walk Anticipated Mode of Locomotion: Walk Walk 10 feet (QC): 88 Distance: 5 Gait Assistive Device: FWW Balance Sitting Static: Good Sitting Dynamic: Good Standing Static: Fair Standing Dynamic: Fair Assessment/Needs Patient tolerated treatment well. Patient lying supine in bed upon PT arrival, requires SBA for all bed mobility and transfers. Patient ambulates 5 feet to the chair with FWW, with CGA and verbal cues. Patient reports fatigue post ga it. Patient in chair post treatment with all needs met, nursing notified, call light in hand. Rehab Potential: Good PT Detention Goals Detention Goals PT Bus System Operator Goals Time Frame: Dec 31, 2020 Roll Left & Right (QC): 6 Sit to Lying (QC): 6 Lying-Sitting on Side/Bed(QC): 6 Sit to Stand (QC): 6 Chair/Xel-wd-Fxubx Xfer(QC): 6 Toilet Transfer (QC): 6 Walk 10 feet (QC): 6 Walk 50ft with 2 Turns (QC): 6 Walk 150 ft (QC): 6 PT Plan Problem List Problem List: Activity Tolerance, Functional Strength, Safety, Balance, Gait, Transfer, Bed Mobility, ROM Treatment/Plan Treatment Plan: Continue Plan of Care Treatment Plan: Bed Mobility, Education, Functional Activity Sirena, Functional Strength, Gait, Safety, Therapeutic Exercise, Transfers Treatment Duration: Dec 31, 2020 Frequency: 6 times per week Estimated Hrs Per Day: .25 hour per day Patient and/or Family Agrees t: Yes Safety Risks/Education Patient Education: Gait Training, Transfer Techniques Teaching Recipient: Patient Teaching Methods: Demonstration, Discussion Response to Teaching: Verbalize Understanding, Return Demonstration Discharge Recommendations Target Placement Home with A as needed. Time/GCodes Time In: 1520 Time Out: 1535 Total Billed Treatment Time: 15 Total Billed Treatment Visit, LIZZIE Winslow PT Dec 21, 2020 16:35
[2020-12-21] MEDS: NOREPINEPHRINE 8 MG/250 ML 250 ML IV SCH (17:57)
[2020-12-21] MEDS: oxyCODONE/APAP 7.5-325 MG (PERCOCET 7.5) TABLET PO PRN (19:39)
[2020-12-22] VITALS (16 sets, daily range): BP systolic 95–171; BP diastolic 44–127
[2020-12-22] MEDS: oxyCODONE/APAP 7.5-325 MG (PERCOCET 7.5) TABLET PO PRN (02:21)
[2020-12-22 02:43] LABS: BASOPHILS # (AUTO) 0.1 10^3/uL (0.0-0.1); BASOPHILS % (AUTO) 0 % (0-10); EOSINOPHILS # (AUTO) 0.3 10^3/uL (0.0-0.3); EOSINOPHILS % (AUTO) 3 % (0-10); HEMATOCRIT 22 % (35-52); HEMOGLOBIN 7.3 g/dL (11.5-16.0); LYMPHOCYTES % (AUTO) 16 % (12-44); MEAN CORPUSCULAR HEMOGLOBIN 31 pg (25-34); MEAN CORPUSCULAR HGB CONC 33 g/dL (32-36); MEAN CORPUSCULAR VOLUME 94 fL (80-99); MEAN PLATELET VOLUME 10.6 fL (9.0-12.2); MONOCYTES # (AUTO) 1.1 10^3/uL (0.0-1.0); MONOCYTES % (AUTO) 9 % (0-12); NEUTROPHILS # (AUTO) 9.1 10^3/uL (1.8-7.8); NEUTROPHILS % (AUTO) 72 % (42-75); PLATELET COUNT 141 10^3/uL (130-400); WHITE BLOOD COUNT 12.6 10^3/uL (4.3-11.0)
[2020-12-22 03:06] LABS: POTASSIUM 4.1 MMOL/L (3.6-5.0)
[2020-12-22 03:07] LABS: CALCIUM 8.5 MG/DL (8.5-10.1)
[2020-12-22 03:12] LABS: CREATININE SERUM 0.93 MG/DL (0.60-1.30)
[2020-12-22] MEDS: LEVOTHYROXINE 50 MCG (LEVOTHROID) TAB PO SCH (05:40)
[2020-12-22 07:03] LABS: PHOSPHORUS 3.1 MG/DL (2.3-4.7)
[2020-12-22 07:05] LABS: MAGNESIUM 2.5 MG/DL (1.6-2.4)
[2020-12-22] MEDS: CLOPIDOGREL 75 MG (PLAVIX) TABLET PO SCH (08:13)
[2020-12-22] MEDS: ASPIRIN 81 MG CHEW (CHILDREN'S ASA) PO SCH (08:13)
[2020-12-22] MEDS: SENNOSIDES 8.6 MG (SENOKOT) TAB PO SCH ×2 (08:13→22:15)
[2020-12-22] MEDS: PANTOPRAZOLE 40 MG (PROTONIX) TAB PO SCH ×2 (08:13→22:15)
[2020-12-22] MEDS: DOCUSATE SODIUM 100 MG (COLACE) CAP PO SCH ×2 (08:13→22:14)
[2020-12-22] MEDS: LIDOCAINE 4% (SALONPAS) PATCH TOP SCH (08:16)
--- NOTE | 2020-12-22 09:25 | Tele-ICU Progress Note ---
Subjective Date Seen by a Provider: Dec 22, 2020 Time Seen by a Provider: 09:25 Sepsis Event Evaluation Height, Weight, BMI Height: '" Weight: lbs. oz. kg; 27.39 BMI Method: Exam Exam Patient acknowledged, consented, and participated in this virtual visit which was conducted using real time audio/video Vital Signs Date Time Temp Pulse Resp B/P (MAP) Pulse Ox O2 Delivery O2 Flow Rate FiO2 12/22/20 08:00 68 6 151/67 (95) 97 Room Air 12/22/20 08:00 36.7 12/22/20 08:00 97 Room Air 12/22/20 07:00 65 12/22/20 07:00 65 8 143/62 (89) 99 Room Air 12/22/20 06:00 65 12 123/58 (79) 93 Room Air 12/22/20 05:00 65 12 95/44 (61) 92 Room Air 12/22/20 04:00 94 Room Air 12/22/20 04:00 63 16 105/51 (69) 91 Room Air 12/22/20 03:07 37.4 Room Air 12/22/20 03:00 71 12 123/54 (77) 98 Room Air 12/22/20 02:38 Room Air 12/22/20 02:00 80 18 165/65 (98) 94 Room Air 12/22/20 01:00 73 133/127 (129) 93 Room Air 12/22/20 01:00 73 12/22/20 00:00 74 102/66 (78) 90 Room Air 12/22/20 00:00 37.2 20 Room Air 12/22/20 00:00 97 Room Air 12/21/20 23:00 74 130/66 (87) 94 Room Air 12/21/20 22:46 87/52 12/21/20 22:29 102/35 12/21/20 22:00 72 118/37 (64) 97 Room Air 12/21/20 21:00 75 25 123/78 (93) 95 Room Air 12/21/20 20:00 95 Room Air 12/21/20 20:00 75 22 107/48 (67) 94 Room Air 12/21/20 20:00 37.7 12/21/20 19:00 73 22 116/38 (64) 95 Room Air 12/21/20 19:00 73 12/21/20 18:00 66 18 153/46 (81) 98 Room Air 12/21/20 17:00 61 16 124/51 (75) 96 Room Air 12/21/20 16:00 66 18 131/39 (69) 92 Room Air 12/21/20 15:58 96 Room Air 12/21/20 15:40 36.8 12/21/20 15:00 75 16 136/49 (78) 95 Room Air 12/21/20 14:00 79 11 145/47 (79) 97 Room Air 12/21/20 13:15 110/31 12/21/20 13:00 64 12/21/20 13:00 66 11 111/36 (61) 99 Room Air 12/21/20 12:48 96 Room Air 12/21/20 12:00 64 17 141/44 (76) 94 Room Air 12/21/20 11:40 37.1 12/21/20 11:00 63 15 108/48 (68) 96 Room Air 12/21/20 10:00 68 12 110/37 (61) 99 Room Air 12/21/20 09:27 97 Room Air I & O 12/22/20 07:00 Intake Total 2525 ml Output Total 1400 ml Balance 1125 ml Height & Weight Height: '" Weight: lbs. oz. kg; 27.39 BMI Method: General Appearance: No Apparent Distress, WD/WN HEENT: PERRL/EOMI, Moist Mucous Membranes Neck: Normal Inspection, Supple Respiratory: Lungs Clear, No Respiratory Distress Cardiovascular: Regular Rate, Rhythm, Systolic Murmur Capillary Refill: Less Than 3 Seconds Gastrointestinal: non tender, soft Extremity: Normal Capillary Refill, No Calf Tenderness, No Pedal Edema Neurologic/Psychiatric: Alert, Oriented x3 Results Lab Laboratory Tests 12/20/20 12:50 12/20/20 17:45 12/20/20 21:20 12/21/20 04:10 12/22/20 02:28 Assessment/Plan Assessment/Plan Available chart/ vitals / labs / Images reviewed Video assessment done using teleICU camera, rest of exam as per RN Discussed with RN , EXAM PER RN Events overnight : FEBRILE 37.4 I/O = pos 1500 RA Drips: dopa OFF Pressors: dopa OFF . levo OFF Consultants: cards, Sx - for line Hospital course: 12/19 - SOB ./ ? CP - HTN emergency , pulm edema 12/20- card cath - RCA stent 12/20 - code blue - ROSC 2 min , AAO post code , not intubated A/P 12/20 - code blue during recovery time post cath - ROSC 2 min - secondary to hypotension ? -- AAO post code, no neuro deficit Hypotension/ Shock post cath - Cardiolgenic + ? over treating the hypertension in light of the - volume status management as per cardioloigy given severe - not hemorrahic - Hb stable , to follow - US done - No pseudoaneurysm or hematoma at cath site - dopa OFF , levo off Fever - new 12/21 - started rocephin 12/21 with PCT 4 , no clear sourse of infection - follow Hypertension on admission --( presented with HTN 127/102) -BP management as per cardioloigy given severe - off all meds , BP is climing up Flush pulm edema on presentation due to HTN emegrency + - on RA now - improved withBP controll , no diuretics CAD - s/p card cath 12/20 - - RCA stent , severe - SAVR or BELINDA. ? timing ? - as per cards Anemia - slow tranding down - no indication for transfusion at present time , especially with risk of pulm edema with - advised RN to check withcardiology given CAD - follow Lines : R IJ 12/20 (Central Line Necessity Reviewed) Byrd: + OG: Nutrition: PO Analgesia: Anxiety/ delirium VTE Prophylaxis: scd Stress Ulcer Prophylaxis: po Glycemic Control: Plans in collaboration with bedside consultants and IM MDs. Discussed with RN to reach out if any questions or concerns A total of 25 minutes of critical care time was devoted to this patient today, required to treat and/or prevent further deterioration of critical care condition ( as above ) . DREW CLAY MD Dec 22, 2020 09:25
--- NOTE | 2020-12-22 10:27 | Progress Note - Hospitalist ---
Subjective HPI/CC On Admission Date Seen by Provider: Dec 22, 2020 Time Seen by Provider: 10:24 Pt is an 89yoCF with a PMH of HTN, OA and aortic stenosis who presented to outside ER due to shortness of breath. Patient states she was at [place] and not exerting herself and developed severe shortness of breath very suddenly. She has had 1 episode of this in the past. She thought it was due to dehydration at that time. Her son took her to the emergency department in [facility]. She was found to be very hypertensive and started on nitroglycerin IV and transferred here for cardiology evaluation. Her symptoms have much improved and she denies any shortness of breath. She denies any chest pain at any time. She does follow with cardiology in [facility], Dr. Kong. She believes she had an echo done within the past month but is unsure of the results. Subjective/Events-last exam Pt reports doing well. Actually requesting discharge home. Discussed plan to transfer out of ICu adn work with PT and hopefully home tomorrow. She is agreeable to this plan. Objective Exam Vital Signs Vital Signs Date Time Temp Pulse Resp B/P (MAP) Pulse Ox O2 Delivery O2 Flow Rate FiO2 12/22/20 10:00 64 128/48 (74) 98 Room Air 12/22/20 09:00 13 12/22/20 08:00 36.7 12/20/20 18:00 2.00 Capillary Refill : Less Than 3 Seconds General Appearance: No Apparent Distress, WD/WN Respiratory: Lungs Clear, No Respiratory Distress Cardiovascular: Regular Rate, Rhythm, No Murmur Gastrointestinal: Normal Bowel Sounds, Non Tender, Soft Neurologic/Psychiatric: Alert, Oriented x3 Results/Procedures Lab Laboratory Tests 12/22/20 02:28 Patient resulted labs reviewed. Assessment/Plan Assessment and Plan Assess & Plan/Chief Complaint Post cardiac arrest bradyacardia to PEA 12/20- ROSC within about 3 minutes Off pressors Started on abx due to leukocytosis and procal yesterday, continue Rocephin Doing well, PT/OT CAD Hypertensive Emergency HTN Cardiology consulted telemetry s/p cardiac cath 12/20 with intervention to RCA Hold home antihypertensives due to hypotension Continue plavix and asa DVT ppx: SCDs only for now Diagnosis/Problems Diagnosis/Problems (1) CAD (coronary artery disease) (2) Hypothyroidism (3) Cardiac arrest (4) Chronic kidney disease, stage 3 (5) Primary hypertension (6) Hypertensive urgency (7) Aortic stenosis (8) Chest pain GERONIMO ALVAREZ MD Dec 22, 2020 10:27
--- NOTE | 2020-12-22 11:28 | Cardiology Progress Note ---
Progress Note-Cardiology Events since last exam Date Seen by Provider: Dec 22, 2020 Time Seen by Provider: 11:26 Events since last exam I am following her due to coronary artery disease, aortic stenosis and shock which has now resolved. Her dopamine was discontinued around 2:00 this morning. She is still sore in her chest from the CPR. She denies dyspnea, palpitations, syncope, or ankle edema. The hospitalist has ordered transfer to the medical floor. Certain portions of this document may have been dictated utilizing voice recognition technology. Inherent to this technology, typographical and gramma tical errors may exist. As much as I am diligent to identify and correct these mistakes, some errors may remain in the document. Vitals Last set of Vitals Signs Vital Signs 12/20/20 12/22/20 12/22/20 18:00 09:00 12:21 Pulse 75 Resp 13 B/P (MAP) 148/62 (90) Pulse Ox 98 O2 Delivery Room Air O2 Flow Rate 2.00 Labs Labs Laboratory Tests 12/22/20 02:28 Exam Vital Signs Vital Signs Date Time Temp Pulse Resp B/P (MAP) Pulse Ox O2 Delivery O2 Flow Rate FiO2 12/22/20 12:21 75 148/62 (90) 98 Room Air 12/22/20 09:00 13 12/22/20 08:00 36.7 12/20/20 18:00 2.00 Physical Exam General: Alert. No acute distress. Eye: No xanthelasma. HENT: Normocephalic. Neck: Jugular venous pressure does not appear elevated. Respiratory: Lungs have crackles at the right base. Respirations are non-labore d. Breath sounds are equal. Symmetrical chest wall expansion. Cardiovascular: Normal rate. Regular rhythm. 3/6 high-pitched systolic ejection murmur. No gallop. No edema. Gastrointestinal: Soft. Normal bowel sounds. Skin: Warm. Dry. Neurologic: Alert and oriented to person, place, time. Cranial nerves 3-11 grossly intact. Psychiatric: Cooperative. Appropriate mood & affect. Labs Laboratory Tests Test 12/22/20 02:28 12/22/20 05:50 Range/Units White Blood Count 12.6 H 4.3-11.0 10^3/uL Red Blood Count 2.37 L 3.80-5.11 10^6/uL Hemoglobin 7.3 L 11.5-16.0 g/dL Hematocrit 22 L 35-52 % Mean Corpuscular Volume 94 80-99 fL Mean Corpuscular Hemoglobin 31 25-34 pg Mean Corpuscular Hemoglobin Concent 33 32-36 g/dL Red Cell Distribution Width 13.1 10.0-14.5 % Platelet Count 141 130-400 10^3/uL Mean Platelet Volume 10.6 9.0-12.2 fL Immature Granulocyte % (Auto) 0 % Neutrophils (%) (Auto) 72 42-75 % Lymphocytes (%) (Auto) 16 12-44 % Monocytes (%) (Auto) 9 0-12 % Eosinophils (%) (Auto) 3 0-10 % Basophils (%) (Auto) 0 0-10 % Neutrophils # (Auto) 9.1 H 1.8-7.8 10^3/uL Lymphocytes # (Auto) 2.0 1.0-4.0 10^3/uL Monocytes # (Auto) 1.1 H 0.0-1.0 10^3/uL Eosinophils # (Auto) 0.3 0.0-0.3 10^3/uL Basophils # (Auto) 0.1 0.0-0.1 10^3/uL Immature Granulocyte # (Auto) 0.1 0.0-0.1 10^3/uL Sodium Level 136 135-145 MMOL/L Potassium Level 4.1 3.6-5.0 MMOL/L Chloride Level 108 H 98-107 MMOL/L Carbon Dioxide Level 19 L 21-32 MMOL/L Anion Gap 9 5-14 MMOL/L Blood Urea Nitrogen 17 7-18 MG/DL Creatinine 0.93 0.60-1.30 MG/DL Estimat Glomerular Filtration Rate 57 BUN/Creatinine Ratio 18 Glucose Level 102 70-105 MG/DL Calcium Level 8.5 8.5-10.1 MG/DL Phosphorus Level 3.1 2.3-4.7 MG/DL Magnesium Level 2.5 H 1.6-2.4 MG/DL Diagnosis/Problems Diagnosis/Problems (1) Coronary artery disease with unstable angina pectoris Assessment & Plan: She is now status post drug-eluting stent placement to the proximal right coronary artery. She has mild disease in the left anterior descending coronary artery that can be treated medically. Unfortunately, she developed cardiac arrest following the procedure. I am not entirely sure of why this occurred. However, she is continuing to improve. She will need to continue dual antiplatelet therapy for a minimum of 3 months time. I will resume very low-dose beta-fanny today. She should continue on statin medication (2) Cardiac arrest Assessment & Plan: Soon after returning to her room following the procedure, the patient developed bradycardic cardiac arrest and required CPR for approximately 2 minutes. She was given 1 dose of atropine and she regained spontaneous circulation. However, she was then in shock and required intravenous dopamine and norepinephrine. This now seems to have resolved. I suspect she may have had a profound vagal spell possibly related to hematoma at the left femoral access site. (3) Cardiogenic shock Assessment & Plan: Exact etiology unclear. Her hemoglobin level is starting to decline slightly now but she did receive a fair amount of intravenous fluids and there could be some dilution occurring. She does have severe aortic stenosis but a normal ejection fraction. Given the degree of aortic stenosis in the setting of cardiac arrest, this may have caused the cardiogenic shock. Fortunately, the shock now seems to have resolved. (4) Pericardial effusion Assessment & Plan: She had a small pericardial effusion following the procedure. This was not mentioned on her recent echocardiogram from the outside facility several weeks ago. I did not see any obvious coronary perforation. Exact etiology of the effusion is unclear. She had 2 echocardiograms that showed a similar sized pericardial effusion. This will likely resolve spontaneously. (5) Aortic stenosis Assessment & Plan: She has severe aortic stenosis. This is being followed by an outside composite engineer. (6) Primary hypertension Assessment & Plan: Her outpatient antihypertensive medication was held due to cardiogenic shock. I will now resume low-dose beta-fanny. (7) Chronic kidney disease, stage 3 Assessment & Plan: This has remained stable. We will need to monitor this closely following the cardiac catheterization and cardiogenic shock. (8) Anemia Assessment & Plan: I suspect this is multifactorial. She did undergo bilateral femoral arterial ultrasounds that did not show any evidence of pseudoaneurysm or AV malformation. She did have a hematoma in the left femoral access area. She was also receiving intravenous vasopressors and IV fluid which may have caused some dilution. I will obtain a follow-up hemoglobin level this afternoon. MAXX BONDS JR, MD Dec 22, 2020 11:27
--- NOTE | 2020-12-22 12:41 | Diagnostic Imaging Report ---
INDICATION: Coronary artery disease COMPARISON: 12/19/2020 FINDINGS: Frontal and lateral views the chest demonstrate cardiac enlargement without overt pulmonary edema, infiltrate or effusion. There has been interval placement right IJ catheter within the SVC. There is no pneumothorax. IMPRESSION: 1. Stable cardiac enlargement without pulmonary edema. 2. Interval placement right IJ catheter. No pneumothorax. Dictated by: Dictated on workstation # [id number]
--- NOTE | 2020-12-22 15:03 | Physical Therapy Daily Note ---
PT Daily Note-Current Subjective Patient lying supine in bed upon PT arrival, agreeable to treatment. Currently reports 0/10 pain. Mental Status Attachments: Byrd Catheter, IV Transfers SCALE: Activities may be completed with or without assistive devices. 0-Edetfwicdw-eotykhq completes the activity by him/herself with no assistance from a helper. 5-Set-up or Clean-up Assistance-helper sets up or cleans up; patient completes activity. [place] assists only prior to or following the activity. 4-Supervision or Touching Assistance-helper provides verbal cues and/or touching/steadying and/or contact guard assistance as patient completes activity. Assistance may be provided throughout the activity or intermittently. 3-Partial/Moderate Assistance-helper does LESS THAN HALF the effort. [place] lifts, holds or supports trunk or limbs, but provides less than half the effort. 2-Substantial/Maximal Assistance-helper does MORE THAN HALF the effort. [place] lifts or holds trunk or limbs and provides more than half the effort. 9-Fwaliqmpr-kwguik does ALL the effort. Patient does none of the effort to complete the activity. Or, the assistance of 2 or more helpers is required for the patient to complete the activity. If activity was not attempted, code reason: 7-Patient Refused. 9-Not Applicable-not attempted and the patient did not perform the activity before the current illness, exacerbation or injury. 10-Not Attempted due to Environmental Limitations-(lack of equipment, weather restraints, etc.). 88-Not Attempted due to Medical Conditions or Safety Concerns. Roll Left & Right (QC): 4 Sit to Lying (QC): 4 Lying to Sitting/Side of Bed(Q: 4 Sit to Stand (QC): 4 Chair/Bdn-wd-Yfizz Xfer(QC): 4 Gait Training Does the Patient Walk?: Yes Distance: 120 feet Walk 10 feet (QC): 4 Walk 50 ft with 2 Turns(QC): 4 Walk 150 ft (QC): 4 Gait Persons Needed: 1 Gait Assistive Device: FWW Assessment Current Status: Fair Progress Patient tolerated treatment well. Demonstrates good overall improvement in bed mobility, transfers and gait. Patient performs all transfers and bed mobility with CGA. Patient ambulates 120 feet with FWW, with CGA and verbal cues for posture, safety, progression and conservation of energy. Patient ambulates with narrow JULY, shortened stride length bilaterally. Patient in chair post treatment with all needs met, nursing notified, call light in hand. PT Bag Machine Helper Goals Bag Machine Helper Goals PT Custodial Goals Time Frame: Dec 31, 2020 Roll Left & Right (QC): 6 Sit to Lying (QC): 6 Lying-Sitting on Side/Bed(QC): 6 Sit to Stand (QC): 6 Chair/Plo-po-Qwzjk Xfer(QC): 6 Toilet Transfer (QC): 6 Walk 10 feet (QC): 6 Walk 50ft with 2 Turns (QC): 6 Walk 150 ft (QC): 6 PT Plan Treatment/Plan Treatment Plan: Continue Plan of Care Treatment Plan: Bed Mobility, Education, Functional Activity Sirena, Functional Strength, Gait, Safety, Therapeutic Exercise, Transfers Treatment Duration: Dec 31, 2020 Frequency: 6 times per week Estimated Hrs Per Day: .25 hour per day Patient and/or Family Agrees t: Yes Safety Risks/Education Patient Education: Gait Training Teaching Recipient: Patient Teaching Methods: Demonstration, Discussion Response to Teaching: Verbalize Understanding, Return Demonstration Time/GCodes Time In: 1435 Time Out: 1450 Total Billed Treatment Time: 15 Total Billed Treatment Visit, Gait LIZZIE MERRITT PT Dec 22, 2020 15:03
[2020-12-22] MEDS: cefTRIAXone 1,000 MG in WATER (STERILE) FOR INJECTION 10 ML IV SCH (15:35)
[2020-12-22] MEDS: ACETAMINOPHEN 325 MG TABLET PO PRN (16:57)
[2020-12-22 17:01] LABS: BASOPHILS % (AUTO) 0 % (0-10); EOSINOPHILS # (AUTO) 0.3 10^3/uL (0.0-0.3); EOSINOPHILS % (AUTO) 3 % (0-10); HEMATOCRIT 21 % (35-52); LYMPHOCYTES # (AUTO) 1.3 X 10^3 (1.0-4.0); LYMPHOCYTES % (AUTO) 12 % (12-44); MEAN CORPUSCULAR HEMOGLOBIN 31 pg (25-34); MEAN CORPUSCULAR HGB CONC 32 g/dL (32-36); MEAN CORPUSCULAR VOLUME 96 fL (80-99); MEAN PLATELET VOLUME 9.9 fL (9.0-12.2); MONOCYTES # (AUTO) 0.9 X 10^3 (0.0-1.0); MONOCYTES % (AUTO) 9 % (0-12); NEUTROPHILS # (AUTO) 8.4 X 10^3 (1.8-7.8); NEUTROPHILS % (AUTO) 76 % (42-75); PLATELET COUNT 127 10^3/uL (130-400); WHITE BLOOD COUNT 11.1 10^3/uL (4.3-11.0)
[2020-12-22 17:11] LABS: HEMOGLOBIN 6.8 g/dL (11.5-16.0)
[2020-12-22] MEDS ORDERED: NS IV 500 ML 500 ML IV SCH (17:30)
[2020-12-22] MEDS: fentaNYL INJ 100 MCG/2 ML AMP IVP PRN (23:10)
[2020-12-22] MEDS ORDERED: FUROSEMIDE 40 MG/4 ML INJ (LASIX) IVP ONE (23:15)
[2020-12-22] MEDS ORDERED: FUROSEMIDE 40 MG/4 ML INJ (LASIX) ONE (23:31)
[2020-12-23] VITALS: BP 176/88
[2020-12-23 04:00] VITALS: BP 173/74
[2020-12-23 04:41] LABS: BASOPHILS # (AUTO) 0.1 10^3/uL (0.0-0.1); BASOPHILS % (AUTO) 1 % (0-10); EOSINOPHILS # (AUTO) 0.4 10^3/uL (0.0-0.3); EOSINOPHILS % (AUTO) 3 % (0-10); HEMATOCRIT 26 % (35-52); HEMOGLOBIN 8.8 g/dL (11.5-16.0); LYMPHOCYTES # (AUTO) 1.6 10^3/uL (1.0-4.0); LYMPHOCYTES % (AUTO) 13 % (12-44); MEAN CORPUSCULAR HEMOGLOBIN 31 pg (25-34); MEAN CORPUSCULAR HGB CONC 33 g/dL (32-36); MEAN CORPUSCULAR VOLUME 93 fL (80-99); MEAN PLATELET VOLUME 10.8 fL (9.0-12.2); MONOCYTES % (AUTO) 8 % (0-12); NEUTROPHILS # (AUTO) 9.3 10^3/uL (1.8-7.8); NEUTROPHILS % (AUTO) 75 % (42-75); PLATELET COUNT 134 10^3/uL (130-400); WHITE BLOOD COUNT 12.5 10^3/uL (4.3-11.0)
[2020-12-23 04:55] LABS: POTASSIUM 3.8 MMOL/L (3.6-5.0)
[2020-12-23 04:56] LABS: CALCIUM 8.8 MG/DL (8.5-10.1)
[2020-12-23 05:00] LABS: CREATININE SERUM 0.9 MG/DL (0.60-1.30)
[2020-12-23] MEDS: LEVOTHYROXINE 50 MCG (LEVOTHROID) TAB PO SCH (06:55)
[2020-12-23 08:00] VITALS: BP 191/81
--- NOTE | 2020-12-23 08:29 | Cardiology Progress Note ---
Progress Note-Cardiology Events since last exam Date Seen by Provider: Dec 23, 2020 Time Seen by Provider: 08:25 Events since last exam I am following her for coronary artery disease and severe aortic stenosis. Her follow-up blood count from yesterday afternoon showed worsening anemia. She received 1 unit of packed red blood cells. She also received 1 dose of intravenous furosemide. Later in the evening she became short of breath and was placed on BiPAP. The BiPAP has since been discontinued. She is now on nasal cannula oxygen. She was also complaining of back and shoulder pain. She states her breathing is improved now. She still has chest discomfort the CPR. She denies palpitations, syncope, or ankle edema. Certain portions of this document may have been dictated utilizing voice recognition technology. Inherent to this technology, typographical and grammatical errors may exist. As much as I am diligent to identify and correct these mistakes, some errors may remain in the document. Vitals Last set of Vitals Signs Vital Signs 12/22/20 12/23/20 12/23/20 18:42 00:00 08:00 Temp 37.2 Pulse 61 Resp 22 B/P (MAP) 191/81 (117) Pulse Ox 100 O2 Delivery Room Air O2 Flow Rate 25.00 Labs Labs Laboratory Tests 12/22/20 16:52 12/23/20 04:10 Exam Vital Signs Vital Signs Date Time Temp Pulse Resp B/P (MAP) Pulse Ox O2 Delivery O2 Flow Rate FiO2 12/23/20 08:00 61 22 191/81 (117) 100 Room Air 12/23/20 00:00 25.00 12/22/20 18:42 37.2 Physical Exam General: Alert. No acute distress. Eye: No xanthelasma. HENT: Normocephalic. Neck: Jugular venous pressure does not appear elevated. Respiratory: Lungs have bibasilar crackles approximately [address] Respirations are non-labored. Breath sounds are equal. Symmetrical chest wall expansion. Cardiovascular: Normal rate. Regular rhythm. 3/6 high-pitched systolic ejection murmur. No gallop. No edema. Gastrointestinal: Soft. Normal bowel sounds. Skin: Warm. Dry. Neurologic: Alert and oriented to person, place, time. Cranial nerves 3-11 grossly intact. Psychiatric: Cooperative. Appropriate mood & affect. Labs Laboratory Tests Test 12/22/20 16:52 12/23/20 04:10 Range/Units White Blood Count 11.1 H 12.5 H 4.3-11.0 10^3/uL Red Blood Count 2.19 L 2.85 L 3.80-5.11 10^6/uL Hemoglobin 6.8 *L 8.8 #L 11.5-16.0 g/dL Hematocrit 21 L 26 L 35-52 % Mean Corpuscular Volume 96 93 80-99 fL Mean Corpuscular Hemoglobin 31 31 25-34 pg Mean Corpuscular Hemoglobin Concent 32 33 32-36 g/dL Red Cell Distribution Width 13.4 13.8 10.0-14.5 % Platelet Count 127 L 134 130-400 10^3/uL Mean Platelet Volume 9.9 10.8 9.0-12.2 fL Immature Granulocyte % (Auto) 0 1 % Neutrophils (%) (Auto) 76 H 75 42-75 % Lymphocytes (%) (Auto) 12 13 12-44 % Monocytes (%) (Auto) 9 8 0-12 % Eosinophils (%) (Auto) 3 3 0-10 % Basophils (%) (Auto) 0 1 0-10 % Neutrophils # (Auto) 8.4 H 9.3 H 1.8-7.8 10^3/uL Lymphocytes # (Auto) 1.3 1.6 1.0-4.0 10^3/uL Monocytes # (Auto) 0.9 1.0 0.0-1.0 10^3/uL Eosinophils # (Auto) 0.3 0.4 H 0.0-0.3 10^3/uL Basophils # (Auto) 0.0 0.1 0.0-0.1 10^3/uL Immature Granulocyte # (Auto) 0.0 0.1 0.0-0.1 10^3/uL Sodium Level 137 135-145 MMOL/L Potassium Level 3.8 3.6-5.0 MMOL/L Chloride Level 107 98-107 MMOL/L Carbon Dioxide Level 20 L 21-32 MMOL/L Anion Gap 10 5-14 MMOL/L Blood Urea Nitrogen 17 7-18 MG/DL Creatinine 0.90 0.60-1.30 MG/DL Estimat Glomerular Filtration Rate 59 BUN/Creatinine Ratio 19 Glucose Level 99 70-105 MG/DL Calcium Level 8.8 8.5-10.1 MG/DL Diagnosis/Problems Diagnosis/Problems (1) Acute diastolic congestive heart failure Assessment & Plan: Although her chest x-ray last evening and again this morning did not show overt pulmonary edema, she does have bibasilar crackles this morning. She also received a blood transfusion. I will treat her with another dose of intravenous Lasix. She has a normal ejection fraction. I suspect she will not need to be discharged with Lasix. (2) Coronary artery disease with unstable angina pectoris Assessment & Plan: She is now status post drug-eluting stent placement to the proximal right coronary artery. She has mild disease in the left anterior descending coronary artery that can be treated medically. Unfortunately, she d eveloped cardiac arrest following the procedure. I am not entirely sure of why this occurred. However, she is continuing to improve. She will need to continue dual antiplatelet therapy for a minimum of 3 months time. Her blood pressures have been trending upward. I will increase the dose of beta-fanny. She should continue on statin medication (3) Aortic stenosis Assessment & Plan: She has severe aortic stenosis. This is being followed by an outside field health officer. (4) Anemia Assessment & Plan: I suspect this is multifactorial. She did undergo bilateral femoral arterial ultrasounds that did not show any evidence of pseudoaneurysm or AV malformation. I had her undergo a CT scan this morning and this did not show any evidence of retroperitoneal hemorrhage. She did have a hematoma in the left femoral access area. She was also receiving intravenous vasopressors and IV fluid which may have caused some dilution. She has now received 1 blood transfusion. She needs to continue aspirin and clopidogrel due to the recent coronary stent. These medications should not be held for the anemia. (5) Cardiac arrest Assessment & Plan: Soon after returning to her room following the procedure, the patient developed bradycardic cardiac arrest and required CPR for approximately 2 minutes. She was given 1 dose of atropine and she regained spontaneous circulation. However, she was then in shock and required intravenous dopamine and norepinephrine. This now seems to have resolved. I suspect she may have had a profound vagal spell possibly related to pain from the hematoma at the left femoral access site. (6) Cardiogenic shock Assessment & Plan: Exact etiology unclear. Given the degree of aortic stenosis in the setting of cardiac arrest, this may have caused the cardiogenic shock. Fortunately, the shock now seems to have resolved. (7) Pericardial effusion Assessment & Plan: She had a small pericardial effusion following the procedure. This was not mentioned on her recent echocardiogram from the outside facility several weeks ago. I did not see any obvious coronary perforation. Exact etiology of the effusion is unclear. She had 2 echocardiograms that showed a similar sized pericardial effusion. This will likely resolve spontaneously. Given her increased shortness of breath last evening, I will obtain a follow-up echocardiogram to reassess the pericardial effusion. (8) Primary hypertension Assessment & Plan: Her outpatient antihypertensive medication was held due to cardiogenic shock. As above, her blood pressures are trending upwards. I will increase the dose of beta-fanny. I would avoid aggressively adjusting her antihypertensive medication or she may develop recurrent hypotension. (9) Chronic kidney disease, stage 3 Assessment & Plan: This has remained stable. We will need to monitor this closely following the cardiac catheterization and cardiogenic shock. MAXX BONDS JR, MD Dec 23, 2020 08:29
[2020-12-23] MEDS ORDERED: FUROSEMIDE 40 MG/4 ML INJ (LASIX) IVP NR (08:30)
--- NOTE | 2020-12-23 08:37 | Diagnostic Imaging Report ---
Indication: Shortness of breath Frontal chest obtained at 0820 a.m. compared to yesterday Heart is mildly enlarged. There is minimal central vascular prominence. There is no consolidation or pneumothorax or pleural fluid. Right IJ central catheter is unchanged. IMPRESSION: Poor inspiration but no definite acute process in the chest. Dictated by: Dictated on workstation # [id number]
[2020-12-23] MEDS: ASPIRIN 81 MG CHEW (CHILDREN'S ASA) PO SCH (08:57)
[2020-12-23] MEDS: DOCUSATE SODIUM 100 MG (COLACE) CAP PO SCH ×2 (08:57→20:50)
[2020-12-23] MEDS: CLOPIDOGREL 75 MG (PLAVIX) TABLET PO SCH (08:58)
[2020-12-23] MEDS: PANTOPRAZOLE 40 MG (PROTONIX) TAB PO SCH ×2 (08:58→20:50)
[2020-12-23] MEDS: SENNOSIDES 8.6 MG (SENOKOT) TAB PO SCH ×2 (08:58→20:50)
[2020-12-23] MEDS: LIDOCAINE 4% (SALONPAS) PATCH TOP SCH (08:58)
--- NOTE | 2020-12-23 09:11 | Diagnostic Imaging Report ---
PROCEDURE: CT abdomen and pelvis without contrast. TECHNIQUE: Multiple contiguous axial images were obtained through the abdomen and pelvis without the use of intravenous contrast. Auto Exposure Controls were utilized during the CT exam to meet ALARA standards for radiation dose reduction. INDICATION: Anemia. Abdominal pain. Post heart catheterization. COMPARISON: None. FINDINGS: The heart is unremarkable. A moderate right and small left pleural effusion are seen with bibasilar atelectasis. There is fatty atrophy of the pancreas. No focal pancreatic lesion is seen. No peripancreatic inflammatory changes. The pancreatic duct is not dilated. Punctate calcifications are seen in the kidneys favored to represent vascular calcifications. No evidence of hydronephrosis. No solid renal masses seen. No perinephric fat stranding is seen. The liver, spleen, and adrenal glands have a normal appearance. There is no pathologically enlarged mesenteric or retroperitoneal adenopathy. The bowel loops are nondilated. Scattered diverticula are seen in the sigmoid colon without evidence of acute diverticulitis. Small amount of free fluid is seen in the pelvis right of midline. No evidence of free air. Posterior fusion changes are visualized at L2-L3. There is grade 2 anterolisthesis of L4 on L5. No acute fractures identified. There is calcified aortic and iliac atherosclerotic plaque without aneurysm. Mild inflammatory changes are seen in the left groin. No evidence of retroperitoneal hematoma. The urinary bladder is decompressed a Byrd in place. There is no free air, loculated collection, or adenopathy in the pelvis. IMPRESSION: 1. Moderate right and small left pleural effusions with bibasilar atelectasis. 2. Inflammatory changes in the left groin, likely representing the patient's recent catheterization. No evidence of retroperitoneal hemorrhage. 3. Small amount of nonspecific free fluid in the pelvis. No evidence of bowel obstruction. No free air. Dictated by: Dictated on workstation # [id number]
[2020-12-23 12:00] VITALS: BP 144/85
--- NOTE | 2020-12-23 12:04 | Progress Note - Hospitalist ---
Subjective HPI/CC On Admission Date Seen by Provider: Dec 23, 2020 Time Seen by Provider: 07:50 Pt is an 89yoCF with a PMH of HTN, OA and aortic stenosis who presented to outside ER due to shortness of breath. Patient states she was at [employer] and not exerting herself and developed severe shortness of breath very suddenly. She has had 1 episode of this in the past. She thought it was due to dehydration at that time. Her son took her to the emergency department in [facility]. She was found to be very hypertensive and started on nitroglycerin IV and transferred here for cardiology evaluation. Her symptoms have much improved and she denies any shortness of breath. She denies any chest pain at any time. She does follow with cardiology in [facility], Dr. Kong. She believes she had an echo done within the past month but is unsure of the results. Subjective/Events-last exam Pt reports feeling better this morning. Needed BiPAP overnight after blood transfusion. Responded well to Lasix though. Objective Exam Vital Signs Vital Signs Date Time Temp Pulse Resp B/P (MAP) Pulse Ox O2 Delivery O2 Flow Rate FiO2 12/23/20 08:00 61 22 191/81 (117) 100 Room Air 12/23/20 00:00 25.00 12/22/20 18:42 37.2 Capillary Refill : Less Than 3 Seconds General Appearance: No Apparent Distress, Chronically ill Respiratory: No Accessory Muscle Use, Decreased Breath Sounds, Other (satting 100% on NC) Cardiovascular: Regular Rate, Rhythm, Systolic Murmur Gastrointestinal: Normal Bowel Sounds, Soft Neurologic/Psychiatric: Alert, Oriented x3 Results/Procedures Lab Laboratory Tests 12/22/20 16:52 12/23/20 04:10 Patient resulted labs reviewed. Assessment/Plan Assessment and Plan Assess & Plan/Chief Complaint Post cardiac arrest bradyacardia to PEA 12/20- ROSC within about 3 minutes Off pressors continue Rocephin due to leukocytosis Doing well, PT/OT CAD Hypertensive Emergency HTN Cardiology consulted telemetry s/p cardiac cath 12/20 with intervention to RCA Hold home antihypertensives due to hypotension Continue plavix and asa Likely got fluid overloaded yesterday evening after blood, continue lasix DVT ppx: SCDs only for now Diagnosis/Problems Diagnosis/Problems (1) CAD (coronary artery disease) (2) Hypothyroidism (3) Cardiac arrest (4) Chronic kidney disease, stage 3 (5) Primary hypertension (6) Hypertensive urgency (7) Aortic stenosis (8) Chest pain GERONIMO ALVAREZ MD Dec 23, 2020 12:04
--- NOTE | 2020-12-23 12:53 | Tele-ICU Progress Note ---
Subjective Date Seen by a Provider: Dec 23, 2020 Time Seen by a Provider: 09:08 Sepsis Event Evaluation Height, Weight, BMI Height: '" Weight: lbs. oz. kg; 27.39 BMI Method: Exam Exam Patient acknowledged, consented, and participated in this virtual visit which was conducted using real time audio/video Vital Signs Date Time Temp Pulse Resp B/P (MAP) Pulse Ox O2 Delivery O2 Flow Rate FiO2 12/23/20 12:45 67 12/23/20 12:33 37.4 12/23/20 12:00 70 12 144/85 (104) 94 Room Air 12/23/20 08:00 61 22 191/81 (117) 100 Room Air 12/23/20 08:00 97 Room Air 12/23/20 07:00 65 12/23/20 04:00 67 20 173/74 (107) 93 Room Air 12/23/20 04:00 67 Room Air 12/23/20 01:00 81 12/23/20 00:38 Room Air 12/23/20 00:00 78 22 176/88 (117) 99 NIV Bilevel 25.00 12/22/20 23:36 Nasal Cannula 2.00 12/22/20 23:33 30.00 12/22/20 23:15 NIV Bilevel 25.00 12/22/20 20:00 64 21 171/75 (107) 92 Room Air 12/22/20 20:00 96 Room Air 12/22/20 19:00 71 12/22/20 18:42 37.2 70 10 140/56 94 Room Air 12/22/20 18:23 37.0 71 16 143/57 98 Room Air 12/22/20 16:00 97 Room Air 12/22/20 16:00 37.1 12/22/20 13:00 75 I & O 12/23/20 07:00 Intake Total 860 ml Output Total 2700 ml Balance -1840 ml Height & Weight Height: '" Weight: lbs. oz. kg; 27.39 BMI Method: General Appearance: No Apparent Distress, Chronically ill HEENT: PERRL/EOMI, Moist Mucous Membranes Neck: Normal Inspection, Supple Respiratory: No Accessory Muscle Use, Decreased Breath Sounds, Other Cardiovascular: Regular Rate, Rhythm, Systolic Murmur Capillary Refill: Less Than 3 Seconds Gastrointestinal: non tender, soft Extremity: Normal Capillary Refill, No Calf Tenderness, No Pedal Edema Neurologic/Psychiatric: Alert, Oriented x3 Results Lab Laboratory Tests 12/22/20 02:28 12/22/20 16:52 12/23/20 04:10 Assessment/Plan Assessment/Plan Available chart/ vitals / labs / Images reviewed Video assessment done using teleICU camera, rest of exam as per RN Discussed with RN , EXAM PER RN Events overnight : FEBRILE 37.4 I/O = even RA Drips: dopa OFF Pressors: dopa OFF . levo OFF Consultants: Karla delacruzx - for line Hospital course: 12/19 - SOB ./ ? CP - HTN emergency , pulm edema 12/20- card cath - RCA stent 12/20 - code blue - ROSC 2 min , AAO post code , not intubated . LEVO , DOPA 12/21 dopa , added ABX empirically for elev PCT 12/22- off pressors , on RA , transfused 1 U prbc for drop HB 12/23 A/P 12/20 - code blue during recovery time post cath - ROSC 2 min - secondary to hypotension ? -- AAO post code, no neuro deficit Hypotension/ Shock post cath - Cardiolgenic + ? over treating the hypertension in light of the - volume status management as per cardioloigy given severe - not hemorrahic - Hb stable , to follow - US done - No pseudoaneurysm or hematoma at cath site, CT abd 12/22 - no bleed - dopa OFF , levo OFF Fever - new 12/21 - started rocephin 12/21 with PCT 4 , no clear sourse of infection - follow Hypertension on admission --( presented with HTN 127/102) -BP management as per cardioloigy given severe - off all meds , BP is climing up Flush pulm edema on presentation due to HTN emegrency + - repeated event after transfusion pRBC 12/22 - on RA now - bila effusion on CT , R>L CAD - s/p card cath 12/20 - - RCA stent , severe - SAVR or BELINDA. ? timing ? - as per cards Anemia - slow tranding down with drop on 12/22-> CT abd --> no hematoma - s/p transfusion 1 U prbc 12/22 Lines : R IJ 12/20 (Central Line Necessity Reviewed) Byrd: + OG: Nutrition: PO Analgesia: Anxiety/ delirium VTE Prophylaxis: scd Stress Ulcer Prophylaxis: po Glycemic Control: Plans in collaboration with bedside consultants and IM MDs. Discussed with RN to reach out if any questions or concerns A total of 25 minutes of critical care time was devoted to this patient today, required to treat and/or prevent further deterioration of critical care condition ( as above ) . DREW CLAY MD Dec 23, 2020 12:53
--- NOTE | 2020-12-23 13:58 | Physical Therapy Daily Note ---
PT Daily Note-Current Subjective Patient reports she is much more tired and sore today. Rates pain at 3/10 in her low back. Agreeable to gait, but wants to get back into bed to sleep. Mental Status Attachments: Byrd Catheter Transfers SCALE: Activities may be completed with or without assistive devices. 0-Ljfgrioagg-umsdtfm completes the activity by him/herself with no assistance from a helper. 5-Set-up or Clean-up Assistance-helper sets up or cleans up; patient completes activity. [place] assists only prior to or following the activity. 4-Supervision or Touching Assistance-helper provides verbal cues and/or touching/steadying and/or contact guard assistance as patient completes activity. Assistance may be provided throughout the activity or intermittently. 3-Partial/Moderate Assistance-helper does LESS THAN HALF the effort. [place] lifts, holds or supports trunk or limbs, but provides less than half the effort. 2-Substantial/Maximal Assistance-helper does MORE THAN HALF the effort. [place] lifts or holds trunk or limbs and provides more than half the effort. 9-Xaurslfki-sckzql does ALL the effort. Patient does none of the effort to complete the activity. Or, the assistance of 2 or more helpers is required for the patient to complete the activity. If activity was not attempted, code reason: 7-Patient Refused. 9-Not Applicable-not attempted and the patient did not perform the activity before the current illness, exacerbation or injury. 10-Not Attempted due to Environmental Limitations-(lack of equipment, weather restraints, etc.). 88-Not Attempted due to Medical Conditions or Safety Concerns. Roll Left & Right (QC): 4 Sit to Lying (QC): 4 Lying to Sitting/Side of Bed(Q: 4 Sit to Stand (QC): 4 Chair/Iwz-lk-Nsjcv Xfer(QC): 4 Gait Training Does the Patient Walk?: Yes Distance: 140 Walk 10 feet (QC): 5 Walk 50 ft with 2 Turns(QC): 4 Gait Assistive Device: FWW Assessment Current Status: Fair Progress Patient tolerated treatment well, however very fatigued and sore per her report post treatment. Patient performs all observed bed mobility and transfers with CGA. Patient ambulates 140 feet with FWW, with CGA and verbal cues for posture, progression, safety and conservation of energy. Patient demonstrates minimal improvement in gait distance, however due to fatigue requests not further treatment. Patient in bed post treatment with all needs met, nursing notified, call light in reach. PT Alf Goals Alf Goals PT Alf Goals Time Frame: Dec 31, 2020 Roll Left & Right (QC): 6 Sit to Lying (QC): 6 Lying-Sitting on Side/Bed(QC): 6 Sit to Stand (QC): 6 Chair/Mmt-uk-Kpinu Xfer(QC): 6 Toilet Transfer (QC): 6 Walk 10 feet (QC): 6 Walk 50ft with 2 Turns (QC): 6 Walk 150 ft (QC): 6 PT Plan Treatment/Plan Treatment Plan: Continue Plan of Care Treatment Plan: Bed Mobility, Education, Functional Activity Sirena, Functional Strength, Gait, Safety, Therapeutic Exercise, Transfers Treatment Duration: Dec 31, 2020 Frequency: 6 times per week Estimated Hrs Per Day: .25 hour per day Patient and/or Family Agrees t: Yes Safety Risks/Education Patient Education: Gait Training Teaching Recipient: Patient Teaching Methods: Demonstration, Discussion Response to Teaching: Verbalize Understanding, Return Demonstration Time/GCodes Time In: 1335 Time Out: 1350 Total Billed Treatment Time: 15 Total Billed Treatment Visit, LIZZIE Bella PT Dec 23, 2020 13:58
[2020-12-23] MEDS: cefTRIAXone 1,000 MG in WATER (STERILE) FOR INJECTION 10 ML IV SCH (15:39)
[2020-12-23] MEDS: oxyCODONE/APAP 7.5-325 MG (PERCOCET 7.5) TABLET PO PRN (15:39)
[2020-12-23 16:00] VITALS: BP 164/72
[2020-12-23 20:00] VITALS: BP 172/74
[2020-12-23] MEDS: ACETAMINOPHEN 325 MG TABLET PO PRN (23:48)
[2020-12-24] VITALS (7 sets, daily range): BP systolic 147–194; BP diastolic 64–86
[2020-12-24] MEDS: oxyCODONE/APAP 7.5-325 MG (PERCOCET 7.5) TABLET PO PRN ×3 (03:23→21:41)
[2020-12-24 03:28] LABS: EOSINOPHILS # (AUTO) 0.6 10^3/uL (0.0-0.3); HEMATOCRIT 25 % (35-52); HEMOGLOBIN 8.3 g/dL (11.5-16.0); LYMPHOCYTES # (AUTO) 1.5 10^3/uL (1.0-4.0); MEAN CORPUSCULAR HEMOGLOBIN 31 pg (25-34); MEAN CORPUSCULAR HGB CONC 34 g/dL (32-36); MEAN CORPUSCULAR VOLUME 91 fL (80-99)
[2020-12-24 03:30] LABS: BASOPHILS # (AUTO) 0.1 10^3/uL (0.0-0.1); BASOPHILS % (AUTO) 1 % (0-10); EOSINOPHILS % (AUTO) 5 % (0-10); LYMPHOCYTES % (AUTO) 14 % (12-44); MEAN PLATELET VOLUME 10.7 fL (9.0-12.2); MONOCYTES % (AUTO) 10 % (0-12); NEUTROPHILS # (AUTO) 7.5 10^3/uL (1.8-7.8); NEUTROPHILS % (AUTO) 70 % (42-75); PLATELET COUNT 140 10^3/uL (130-400); WHITE BLOOD COUNT 10.7 10^3/uL (4.3-11.0)
[2020-12-24 03:38] LABS: POTASSIUM 3.2 MMOL/L (3.6-5.0)
[2020-12-24 03:39] LABS: CALCIUM 8.6 MG/DL (8.5-10.1)
[2020-12-24 03:43] LABS: CREATININE SERUM 0.98 MG/DL (0.60-1.30)
[2020-12-24] MEDS: LEVOTHYROXINE 50 MCG (LEVOTHROID) TAB PO SCH (06:04)
[2020-12-24] MEDS: CLOPIDOGREL 75 MG (PLAVIX) TABLET PO SCH (08:07)
[2020-12-24] MEDS: PANTOPRAZOLE 40 MG (PROTONIX) TAB PO SCH ×2 (08:07→21:41)
[2020-12-24] MEDS: LIDOCAINE 4% (SALONPAS) PATCH TOP SCH (08:07)
[2020-12-24] MEDS: SENNOSIDES 8.6 MG (SENOKOT) TAB PO SCH ×2 (08:07→21:40)
[2020-12-24] MEDS: DOCUSATE SODIUM 100 MG (COLACE) CAP PO SCH ×2 (08:07→21:40)
[2020-12-24] MEDS: ASPIRIN 81 MG CHEW (CHILDREN'S ASA) PO SCH (08:07)
[2020-12-24] MEDS ORDERED: KCL 20 MEQ TAB (K-DUR) PO ONE (08:45)
--- NOTE | 2020-12-24 09:20 | Progress Note - Hospitalist ---
Subjective HPI/CC On Admission Date Seen by Provider: Dec 24, 2020 Time Seen by Provider: 09:15 Pt is an 89yoCF with a PMH of HTN, OA and aortic stenosis who presented to outside ER due to shortness of breath. Patient states she was at [employer] and not exerting herself and developed severe shortness of breath very suddenly. She has had 1 episode of this in the past. She thought it was due to dehydration at that time. Her son took her to the emergency department in [facility]. She was found to be very hypertensive and started on nitroglycerin IV and transferred here for cardiology evaluation. Her symptoms have much improved and she denies any shortness of breath. She denies any chest pain at any time. She does follow with cardiology in [facility], Dr. Kong. She believes she had an echo done within the past month but is unsure of the results. Subjective/Events-last exam Pt reports doing well. Was hopeful to go home today but due to hemoglobin drop decided to keep at least another night. Objective Exam Vital Signs Vital Signs Date Time Temp Pulse Resp B/P (MAP) Pulse Ox O2 Delivery O2 Flow Rate FiO2 12/24/20 08:27 37.1 12/24/20 08:00 97 Room Air 12/24/20 08:00 66 34 190/82 (118) 12/23/20 00:00 25.00 Capillary Refill : Less Than 3 Seconds General Appearance: No Apparent Distress, Chronically ill HEENT: PERRL/EOMI, Moist Mucous Membranes Respiratory: Lungs Clear, No Respiratory Distress Cardiovascular: Regular Rate, Rhythm, Systolic Murmur Gastrointestinal: Normal Bowel Sounds, Non Tender, Soft Neurologic/Psychiatric: Alert, Oriented x3 Results/Procedures Lab Laboratory Tests 12/24/20 03:17 Patient resulted labs reviewed. Assessment/Plan Assessment and Plan Assess & Plan/Chief Complaint Post cardiac arrest bradycardia to PEA 12/20- ROSC within about 3 minutes Off pressors continue Rocephin, leukocytosis resolved Doing well, PT/OT CAD Hypertensive Emergency HTN Anemia Cardiology consulted telemetry s/p cardiac cath 12/20 with intervention to RCA Continue plavix and asa Hgb down to 8.3 this AM, trend Now hypertensive, increased coreg this AM DVT ppx: SCDs only for now due to anemia Diagnosis/Problems Diagnosis/Problems (1) CAD (coronary artery disease) Qualifiers: Coronary Disease-Associated Artery/Lesion type: [place] artery [place] vs. transplanted heart: [place] heart Associated angina: without angina Qualified Codes: I25.10 - Atherosclerotic heart disease of [place] coronary artery without angina pectoris (2) Hypothyroidism Status: Chronic (3) Cardiac arrest Status: Acute (4) Chronic kidney disease, stage 3 Status: Chronic (5) Primary hypertension Status: Chronic (6) Hypertensive urgency Status: Acute (7) Aortic stenosis Status: Chronic Qualifiers: Cardiac valve disease etiology: nonrheumatic Qualified Codes: I35.0 - Nonrheumatic aortic (valve) stenosis GERONIMO ALVAREZ MD Dec 24, 2020 09:20
--- NOTE | 2020-12-24 09:34 | Cardiology Progress Note ---
Subjective Date Seen by Provider: Dec 24, 2020 Time Seen by Provider: 09:31 Subjective/Events-last exam Patient was seen at bedside, sitting comfortably, no new complaint, breathing is better today. Review of Systems General: No Chills, No Night Sweats; Fatigue; No Malaise, No Appetite, No Other HEENT: No Head Aches, No Visual Changes, No Eye Pain, No Ear Pain, No D ysphasia, No Sinus Congestion, No Post Nasal Drip, No Sore Throat, No Other Pulmonary: Dyspnea; No Cough, No Pleuritic Chest Pain, No Other Cardiovascular: No: Chest Pain, Palpitations, Orthopnea, Paroxysmal Noc. Dyspnea, Edema, Lt Headedness, Other Objective-Cardiology Exam Last Set of Vital Signs Vital Signs 12/23/20 12/24/20 12/24/20 00:00 08:00 08:27 Temp 37.1 Pulse 66 Resp 34 B/P (MAP) 190/82 (118) Pulse Ox 97 O2 Delivery Room Air O2 Flow Rate 25.00 I&O Intake and Output 12/24/20 00:00 Intake Total 1390 ml Output Total 4325 ml Balance -2935 ml Intake Oral 1380 ml IV Total 10 ml Output Urine Total 4125 ml Post Void Residual 200 ml # Voids 2 General: Alert, Oriented X3, Cooperative HEENT: Atraumatic, PERRLA Neck: Supple, No JVD, No Thyromegaly Lungs: Clear to Auscultation, Normal Air Movement Heart: Regular Rate, Normal S1, Normal S2, Other (Systolic murmur at the left sternal border) Abdomen: Normal Bowel Sounds, Soft, No Tenderness, No Hepatosplenomegaly, No Masses Extremities: No Clubbing, No Cyanosis, No Edema, Normal Pulses, No Tenderness/Swelling Skin: No Rashes, No Breakdown, No Significant Lesion Neuro: Normal Gait, Normal Speech, Strength at 5/5 X4 Ext, Normal Tone, Sensation Intact Psych/Mental Status: Mental Status NL, Mood NL Results Lab Laboratory Tests 12/24/20 03:17 A/P-Cardiology Admission Diagnosis Anemia Coronary artery disease Congestive heart failure, acute left ventricular diastolic dysfunction Hypertension Assessment/Plan Anemia, status post transfusion of 1 unit, H&H and better, mild drop in H&H was noted today, we will continue to monitor closely. Maintained on aspirin and Plavix. Congestive heart failure, acute left ventricular diastolic dysfunction, responded to diuretics, blood pressure is better today. Continue to monitor Coronary artery disease, status post cardiac catheterization and stent to the proximal right coronary artery, has mild disease in the LAD that was treated medically. 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 Continue to monitor Status post cardiac arrest after episodes of bradycardia and hypotension. Could be related to vasovagal episode on top of the severe aortic valve stenosis. Continue to monitor blood pressure Status post cardiogenic shock, improved. Blood pressure is elevated today Small pericardial effusion, persistent, did not change. Continue to monitor Hypertension, mildly elevated today, Coreg was increased. Monitor tolerance and response Chronic kidney disease stage III. Continue to monitor H&H MAGDY BRISCOE MD Dec 24, 2020 09:34
--- NOTE | 2020-12-24 12:22 | Physical Therapy Daily Note ---
PT Daily Note-Current Subjective Pt is in the bedside chair, agreeable to treatment. Mental Status Patient Orientation: Person, Place, Time, Situation Transfers SCALE: Activities may be completed with or without assistive devices. 4-Nvzvjoxwhj-frtkzux completes the activity by him/herself with no assistance from a helper. 5-Set-up or Clean-up Assistance-helper sets up or cleans up; patient completes activity. [place] assists only prior to or following the activity. 4-Supervision or Touching Assistance-helper provides verbal cues and/or touching/steadying and/or contact guard assistance as patient completes activity. Assistance may be provided throughout the activity or intermittently. 3-Partial/Moderate Assistance-helper does LESS THAN HALF the effort. [place] lifts, holds or supports trunk or limbs, but provides less than half the effort. 2-Substantial/Maximal Assistance-helper does MORE THAN HALF the effort. [place] lifts or holds trunk or limbs and provides more than half the effort. 0-Uounajzfo-aggypv does ALL the effort. Patient does none of the effort to complete the activity. Or, the assistance of 2 or more helpers is required for the patient to complete the activity. If activity was not attempted, code reason: 7-Patient Refused. 9-Not Applicable-not attempted and the patient did not perform the activity before the current illness, exacerbation or injury. 10-Not Attempted due to Environmental Limitations-(lack of equipment, weather restraints, etc.). 88-Not Attempted due to Medical Conditions or Safety Concerns. Roll Left & Right (QC): 4 Sit to Lying (QC): 4 Lying to Sitting/Side of Bed(Q: 4 Sit to Stand (QC): 4 Chair/Kfz-an-Vepzo Xfer(QC): 4 Gait Training Does the Patient Walk?: Yes Distance: 120ft Walk 10 feet (QC): 5 Walk 50 ft with 2 Turns(QC): 5 Gait Persons Needed: 1 Gait Assistive Device: FWW Wheelchair Training Does the Pt Use a Wheelchair?: No Exercises Seated Therapy Exercises: LE Protocol Seated Reps: 15 Assessment Current Status: Good Progress Pt is very stable and noted feeling better after ambulating. No issues with bed mobility, transfers, or gait. PT Long-Term Goals Long-Term Goals PT Long-Term Goals Time Frame: Dec 31, 2020 Roll Left & Right (QC): 6 Sit to Lying (QC): 6 Lying-Sitting on Side/Bed(QC): 6 Sit to Stand (QC): 6 Chair/Wgz-qx-Psysn Xfer(QC): 6 Toilet Transfer (QC): 6 Walk 10 feet (QC): 6 Walk 50ft with 2 Turns (QC): 6 Walk 150 ft (QC): 6 PT Plan Treatment/Plan Treatment Plan: Continue Plan of Care Treatment Plan: Bed Mobility, Education, Functional Activity Sirena, Functional Strength, Gait, Safety, Therapeutic Exercise, Transfers Treatment Duration: Dec 31, 2020 Frequency: 6 times per week Estimated Hrs Per Day: .25 hour per day Patient and/or Family Agrees t: Yes Time/GCodes Time In: 1058 Time Out: 1108 Total Billed Treatment Time: 10 Total Billed Treatment 1, gt 10 COSMO MARTINI PT Dec 24, 2020 12:22
[2020-12-24] MEDS: cefTRIAXone 1,000 MG in WATER (STERILE) FOR INJECTION 10 ML IV SCH (15:24)
[2020-12-24] MEDS: hydrALAZINE (APRESOLINE) 25 MG TAB PO SCH (21:41)
[2020-12-25 03:42] VITALS: BP 167/66
[2020-12-25] MEDS: oxyCODONE/APAP 7.5-325 MG (PERCOCET 7.5) TABLET PO PRN ×3 (03:50→20:29)
[2020-12-25] MEDS: hydrALAZINE (APRESOLINE) 25 MG TAB PO SCH ×3 (06:18→21:55)
[2020-12-25] MEDS: LEVOTHYROXINE 50 MCG (LEVOTHROID) TAB PO SCH (06:18)
[2020-12-25 06:37] LABS: BASOPHILS # (AUTO) 0.1 10^3/uL (0.0-0.1); BASOPHILS % (AUTO) 1 % (0-10); EOSINOPHILS # (AUTO) 0.6 10^3/uL (0.0-0.3); EOSINOPHILS % (AUTO) 7 % (0-10); HEMATOCRIT 24 % (35-52); HEMOGLOBIN 8.2 g/dL (11.5-16.0); LYMPHOCYTES # (AUTO) 1.5 10^3/uL (1.0-4.0); LYMPHOCYTES % (AUTO) 18 % (12-44); MEAN CORPUSCULAR HEMOGLOBIN 31 pg (25-34); MEAN CORPUSCULAR HGB CONC 34 g/dL (32-36); MEAN CORPUSCULAR VOLUME 93 fL (80-99); MEAN PLATELET VOLUME 10.3 fL (9.0-12.2); MONOCYTES % (AUTO) 12 % (0-12); NEUTROPHILS # (AUTO) 4.9 10^3/uL (1.8-7.8); NEUTROPHILS % (AUTO) 62 % (42-75); PLATELET COUNT 158 10^3/uL (130-400)
[2020-12-25 06:49] LABS: POTASSIUM 3.9 MMOL/L (3.6-5.0)
[2020-12-25 06:51] LABS: CALCIUM 8.5 MG/DL (8.5-10.1)
[2020-12-25 06:55] LABS: CREATININE SERUM 0.81 MG/DL (0.60-1.30)
[2020-12-25 08:20] VITALS: BP 185/81
[2020-12-25] MEDS: LIDOCAINE 4% (SALONPAS) PATCH TOP SCH (08:30)
[2020-12-25] MEDS: ASPIRIN 81 MG CHEW (CHILDREN'S ASA) PO SCH (08:31)
[2020-12-25] MEDS: CLOPIDOGREL 75 MG (PLAVIX) TABLET PO SCH (08:31)
[2020-12-25] MEDS: SENNOSIDES 8.6 MG (SENOKOT) TAB PO SCH ×2 (08:31→20:29)
[2020-12-25] MEDS: DOCUSATE SODIUM 100 MG (COLACE) CAP PO SCH ×2 (08:31→20:29)
[2020-12-25] MEDS: PANTOPRAZOLE 40 MG (PROTONIX) TAB PO SCH ×2 (08:31→20:28)
--- NOTE | 2020-12-25 10:59 | Progress Note - Hospitalist ---
Subjective HPI/CC On Admission Date Seen by Provider: Dec 25, 2020 Time Seen by Provider: 10:57 Pt is an 89yoCF with a PMH of HTN, OA and aortic stenosis who presented to outside ER due to shortness of breath. Patient states she was at [employer] and not exerting herself and developed severe shortness of breath very suddenly. She has had 1 episode of this in the past. She thought it was due to dehydration at that time. Her son took her to the emergency department in [facility]. She was found to be very hypertensive and started on nitroglycerin IV and transferred here for cardiology evaluation. Her symptoms have much improved and she denies any shortness of breath. She denies any chest pain at any time. She does follow with cardiology in [facility], Dr. Kong. She believes she had an echo done within the past month but is unsure of the results. Subjective/Events-last exam Pt reports feeling ok but having shoulder pain from her known arthritis. Thinks the hospital bed is making it worse. Discussed elevated BPs still and adjustments in meds to treat. Objective Exam Vital Signs Vital Signs Date Time Temp Pulse Resp B/P (MAP) Pulse Ox O2 Delivery O2 Flow Rate FiO2 12/25/20 08:20 37.1 69 18 185/81 (115) 97 Room Air 12/23/20 00:00 25.00 Capillary Refill : Less Than 3 Seconds General Appearance: No Apparent Distress, WD/WN Respiratory: Lungs Clear Cardiovascular: Regular Rate, Rhythm, Systolic Murmur Gastrointestinal: Normal Bowel Sounds, Non Tender, Soft Neurologic/Psychiatric: Alert, Oriented x3 Results/Procedures Lab Laboratory Tests 12/25/20 06:25 Patient resulted labs reviewed. Assessment/Plan Assessment and Plan Assess & Plan/Chief Complaint Post cardiac arrest bradycardia to PEA 12/20- ROSC within about 3 minutes continue Rocephin, leukocytosis resolved Doing well, PT/OT CAD Hypertensive Emergency HTN Anemia Severe aortic stenosis- POA Cardiology consulted telemetry s/p cardiac cath 12/20 with intervention to RCA Continue plavix and asa Hgb stable to 8.2 this AM, trend Very hypertensive with increasing BP meds DVT ppx: SCDs only for now due to anemia Diagnosis/Problems Diagnosis/Problems (1) CAD (coronary artery disease) Qualifiers: Coronary Disease-Associated Artery/Lesion type: [place] artery [place] vs. transplanted heart: [place] heart Associated angina: without angina Qualified Codes: I25.10 - Atherosclerotic heart disease of [place] coronary artery without angina pectoris (2) Hypothyroidism Status: Chronic (3) Cardiac arrest Status: Acute (4) Chronic kidney disease, stage 3 Status: Chronic (5) Primary hypertension Status: Chronic (6) Hypertensive urgency Status: Acute (7) Aortic stenosis Status: Chronic Qualifiers: Cardiac valve disease etiology: nonrheumatic Qualified Codes: I35.0 - Nonrheumatic aortic (valve) stenosis GERONIMO ALVAREZ MD Dec 25, 2020 10:59
--- NOTE | 2020-12-25 11:45 | Cardiology Progress Note ---
Subjective Date Seen by Provider: Dec 25, 2020 Time Seen by Provider: 11:44 Subjective/Events-last exam Patient is feeling better this morning, reporting mild back pain, was walking in the hallway without difficulties, using a walker Review of Systems General: No Chills, No Night Sweats, No Fatigue, No Malaise, No Appetite, No Other HEENT: No Head Aches, No Visual Changes, No Eye Pain, No Ear Pain, No Dysphasia, No Sinus Congestion, No Post Nasal Drip, No Sore Throat, No Other Pulmonary: No Dyspnea, No Cough, No Pleuritic Chest Pain, No Other Cardiovascular: No: Chest Pain, Palpitations, Orthopnea, Paroxysmal Noc. Dy spnea, Edema, Lt Headedness, Other Objective-Cardiology Exam Last Set of Vital Signs Vital Signs 12/23/20 12/25/20 12/25/20 00:00 08:20 11:42 Temp 37.1 Pulse 56 Resp 18 B/P (MAP) 185/81 (115) Pulse Ox 97 O2 Delivery Room Air O2 Flow Rate 25.00 I&O Intake and Output 12/25/20 00:00 Intake Total 1480 ml Output Total 450 ml Balance 1030 ml Intake Oral 1480 ml Output Urine Total 450 ml Post Void Residual 0 ml # Voids 4 General: Alert, Oriented X3, Cooperative HEENT: Atraumatic, PERRLA Neck: Supple, No JVD, No Thyromegaly Lungs: Clear to Auscultation, Normal Air Movement Heart: Regular Rate, Normal S1, Normal S2, Other (Systolic murmur at the left sternal border) Abdomen: Normal Bowel Sounds, Soft, No Tenderness, No Hepatosplenomegaly, No Masses Extremities: No Clubbing, No Cyanosis, No Edema, Normal Pulses, No Tenderness/Swelling Skin: No Rashes, No Breakdown, No Significant Lesion Neuro: Normal Gait, Normal Speech, Strength at 5/5 X4 Ext, Normal Tone, Sensation Intact Psych/Mental Status: Mental Status NL, Mood NL Results Lab Laboratory Tests 12/25/20 06:25 A/P-Cardiology Admission Diagnosis Anemia Coronary artery disease Congestive heart failure, acute left ventricular diastolic dysfunction Hypertension Assessment/Plan Anemia, status post transfusion of 1 unit, H&H and better, mild drop in H&H was noted today, we will continue to monitor closely. Maintained on aspirin and Plavix. Congestive heart failure, acute left ventricular diastolic dysfunction, responded to diuretics, blood pressure is better today. Continue to monitor Coronary artery disease, status post cardiac catheterization and stent to the proximal right coronary artery, has mild disease in the LAD that was treated medically. 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 Continue to monitor Status post cardiac arrest after episodes of bradycardia and hypotension. Could be related to vasovagal episode on top of the severe aortic valve stenosis. Continue to monitor blood pressure Status post cardiogenic shock, improved. Blood pressure is elevated today Small pericardial effusion, persistent, did not change. Continue to monitor Hypertension, mildly elevated today, Coreg was increased. Monitor tolerance and response Chronic kidney disease stage III. Continue to monitor H&H MAGDY BRISCOE MD Dec 25, 2020 11:45
[2020-12-25] MEDS: ACETAMINOPHEN 325 MG TABLET PO PRN (11:54)
[2020-12-25 12:00] VITALS: BP 102/57
[2020-12-25] MEDS: cefTRIAXone 1,000 MG in WATER (STERILE) FOR INJECTION 10 ML IV SCH (15:05)
[2020-12-25 16:09] VITALS: BP 114/62
[2020-12-25 20:12] VITALS: BP 154/67
[2020-12-25 23:20] VITALS: BP 173/76
[2020-12-26] MEDS: oxyCODONE/APAP 7.5-325 MG (PERCOCET 7.5) TABLET PO PRN ×2 (02:42→08:59)
[2020-12-26 03:33] VITALS: BP 154/68
[2020-12-26 03:49] LABS: BASOPHILS # (AUTO) 0.1 10^3/uL (0.0-0.1); BASOPHILS % (AUTO) 1 % (0-10); EOSINOPHILS # (AUTO) 0.6 10^3/uL (0.0-0.3); EOSINOPHILS % (AUTO) 7 % (0-10); HEMATOCRIT 24 % (35-52); HEMOGLOBIN 8.1 g/dL (11.5-16.0); LYMPHOCYTES # (AUTO) 1.5 10^3/uL (1.0-4.0); LYMPHOCYTES % (AUTO) 19 % (12-44); MEAN CORPUSCULAR HEMOGLOBIN 31 pg (25-34); MEAN CORPUSCULAR HGB CONC 34 g/dL (32-36); MEAN CORPUSCULAR VOLUME 93 fL (80-99); MEAN PLATELET VOLUME 10.1 fL (9.0-12.2); MONOCYTES % (AUTO) 12 % (0-12); NEUTROPHILS % (AUTO) 62 % (42-75); PLATELET COUNT 169 10^3/uL (130-400); WHITE BLOOD COUNT 8.1 10^3/uL (4.3-11.0)
[2020-12-26 04:07] LABS: POTASSIUM 3.9 MMOL/L (3.6-5.0)
[2020-12-26 04:08] LABS: CALCIUM 8.6 MG/DL (8.5-10.1)
[2020-12-26 04:12] LABS: CREATININE SERUM 0.81 MG/DL (0.60-1.30)
[2020-12-26] MEDS: LEVOTHYROXINE 50 MCG (LEVOTHROID) TAB PO SCH (05:38)
[2020-12-26] MEDS: hydrALAZINE (APRESOLINE) 25 MG TAB PO SCH ×2 (05:38→14:01)
[2020-12-26 08:00] VITALS: BP 164/67
--- NOTE | 2020-12-26 08:15 | Cardiology Progress Note ---
Progress Note-Cardiology Events since last exam Date Seen by Provider: Dec 26, 2020 Time Seen by Provider: 08:10 Events since last exam I am following her for coronary artery disease, heart failure and aortic jacob nosis. Over the weekend, her blood pressures were markedly elevated. She was gradually started back on her outpatient antihypertensive medication. This morning her chest still feels sore when she takes deep breaths or moves around. She denies dyspnea. She denies palpitations, syncope, or ankle edema. She wants to go home. Certain portions of this document may have been dictated utilizing voice recognition technology. Inherent to this technology, typographical and grammatical errors may exist. As much as I am diligent to identify and correct these mistakes, some errors may remain in the document. Vitals Last set of Vitals Signs Vital Signs 12/23/20 12/26/20 00:00 03:33 Temp 37.0 Pulse 76 Resp 18 B/P (MAP) 154/68 (96) Pulse Ox 94 O2 Delivery Room Air O2 Flow Rate 25.00 Labs Labs Laboratory Tests 12/26/20 03:37 Exam Vital Signs Vital Signs Date Time Temp Pulse Resp B/P (MAP) Pulse Ox O2 Delivery O2 Flow Rate FiO2 12/26/20 03:33 37.0 76 18 154/68 (96) 94 Room Air 12/23/20 00:00 25.00 Physical Exam General: Alert. No acute distress. Eye: No xanthelasma. HENT: Normocephalic. Neck: Jugular venous pressure does not appear elevated. Respiratory: Lungs are clear to auscultation. Respirations are non-labored. Breath sounds are equal. Symmetrical chest wall expansion. Cardiovascular: Normal rate. Regular rhythm. 3/6 high-pitched systolic ejection murmur. No gallop. No edema. Gastrointestinal: Soft. Normal bowel sounds. Skin: Warm. Dry. Neurologic: Alert and oriented to person, place, time. Cranial nerves 3-11 grossly intact. Psychiatric: Cooperative. Appropriate mood & affect. Labs Laboratory Tests Test 12/26/20 03:37 Range/Units White Blood Count 8.1 4.3-11.0 10^3/uL Red Blood Count 2.58 L 3.80-5.11 10^6/uL Hemoglobin 8.1 L 11.5-16.0 g/dL Hematocrit 24 L 35-52 % Mean Corpuscular Volume 93 80-99 fL Mean Corpuscular Hemoglobin 31 25-34 pg Mean Corpuscular Hemoglobin Concent 34 32-36 g/dL Red Cell Distribution Width 13.6 10.0-14.5 % Platelet Count 169 130-400 10^3/uL Mean Platelet Volume 10.1 9.0-12.2 fL Immature Granulocyte % (Auto) 1 % Neutrophils (%) (Auto) 62 42-75 % Lymphocytes (%) (Auto) 19 12-44 % Monocytes (%) (Auto) 12 0-12 % Eosinophils (%) (Auto) 7 0-10 % Basophils (%) (Auto) 1 0-10 % Neutrophils # (Auto) 5.0 1.8-7.8 10^3/uL Lymphocytes # (Auto) 1.5 1.0-4.0 10^3/uL Monocytes # (Auto) 1.0 0.0-1.0 10^3/uL Eosinophils # (Auto) 0.6 H 0.0-0.3 10^3/uL Basophils # (Auto) 0.1 0.0-0.1 10^3/uL Immature Granulocyte # (Auto) 0.0 0.0-0.1 10^3/uL Sodium Level 136 135-145 MMOL/L Potassium Level 3.9 3.6-5.0 MMOL/L Chloride Level 105 98-107 MMOL/L Carbon Dioxide Level 22 21-32 MMOL/L Anion Gap 9 5-14 MMOL/L Blood Urea Nitrogen 19 H 7-18 MG/DL Creatinine 0.81 0.60-1.30 MG/DL Estimat Glomerular Filtration Rate 67 BUN/Creatinine Ratio 23 Glucose Level 99 70-105 MG/DL Calcium Level 8.6 8.5-10.1 MG/DL Diagnosis/Problems Diagnosis/Problems (1) Acute diastolic congestive heart failure Assessment & Plan: Symptomatically improved. Lungs are clear to auscultation today. From a cardiac standpoint, she can probably be discharged home today. (2) Coronary artery disease with unstable angina pectoris Assessment & Plan: She is now status post drug-eluting stent placement to the proximal right coronary artery. She has mild disease in the left anterior descending coronary artery that can be treated medically. Unfortunately, she developed cardiac arrest following the procedure. I am not entirely sure of why this occurred. However, she continues to improve. She will need to continue dual antiplatelet therapy for a minimum of 3 months time. She should continue on beta-fanny and statin medication (3) Aortic stenosis Status: Chronic Assessment & Plan: She has severe aortic stenosis. This is being followed by an outside ship pilot dispatcher. (4) Primary hypertension Status: Chronic Assessment & Plan: Her blood pressure medication was adjusted over the past couple of days. Her blood pressures have improved. I would avoid aggressively adjusting her antihypertensive medication or she may develop recurrent hypotension. (5) Anemia Assessment & Plan: I suspect this is multifactorial. She did undergo bilateral femoral arterial ultrasounds that did not show any evidence of pseudoaneurysm or AV malformation. I had her undergo an abdominal/pelvic CT scan and this did not show any evidence of retroperitoneal hemorrhage. She did have a hematoma in the left femoral access area. She was also receiving intravenous vasopressors and IV fluid which may have caused some dilution. She has now received 1 blood transfusion. She needs to continue aspirin and clopidogrel due to the recent coronary stent. These medications should not be held for the anemia. Her hemoglobin has now been stable for several days. (6) Cardiac arrest Status: Acute Assessment & Plan: Soon after returning to her room following the procedure, the patient developed bradycardic cardiac arrest and required CPR for approximately 2 minutes. She was given 1 dose of atropine and she regained spontaneous circulation. However, she was then in shock and required intravenous dopamine and norepinephrine. This now seems to have resolved. I suspect she may have had a profound vagal spell possibly related to pain from the hematoma at the left femoral access site. (7) Cardiogenic shock Assessment & Plan: Exact etiology unclear. Given the degree of aortic stenosis in the setting of cardiac arrest, this may have caused the cardiogenic shock. Fortunately, the shock resolved. (8) Pericardial effusion Assessment & Plan: She had a small pericardial effusion following the procedure. This was not mentioned on her recent echocardiogram from the outside facility several weeks ago. I did not see any obvious coronary perforation. Exact etiology of the effusion is unclear. She had 3 echocardiograms that showed a similar sized pericardial effusion. This will likely resolve spontaneously. (9) Chronic kidney disease, stage 3 Status: Chronic Assessment & Plan: This has remained stable despite her cardiogenic shock and contrast administered during the cardiac catheterization. Problem Qualifiers (1) Aortic stenosis: Cardiac valve disease etiology: nonrheumatic Qualified Codes: I35.0 - Nonrheumatic aortic (valve) stenosis MAXX BONDS JR, MD Dec 26, 2020 08:15
[2020-12-26] MEDS: PANTOPRAZOLE 40 MG (PROTONIX) TAB PO SCH (08:59)
[2020-12-26] MEDS: ASPIRIN 81 MG CHEW (CHILDREN'S ASA) PO SCH (08:59)
[2020-12-26] MEDS: CLOPIDOGREL 75 MG (PLAVIX) TABLET PO SCH (08:59)
[2020-12-26] MEDS: SENNOSIDES 8.6 MG (SENOKOT) TAB PO SCH (08:59)
[2020-12-26] MEDS: DOCUSATE SODIUM 100 MG (COLACE) CAP PO SCH (08:59)
[2020-12-26] MEDS: LIDOCAINE 4% (SALONPAS) PATCH TOP SCH (09:00)
[2020-12-26] MEDS ORDERED: CLOP75TA28 PO (11:58)
[2020-12-26 12:00] VITALS: BP 129/63
[2020-12-26 14:11] VITALS: BP 129/63
--- NOTE | 2020-12-26 19:07 | Discharge Summary ---
Discharge Summary Hospital Course Problems/Dx: (1) Acute diastolic congestive heart failure (2) Coronary artery disease with unstable angina pectoris (3) Aortic stenosis Status: Chronic Qualifiers: Qualified Codes: I35.0 - Nonrheumatic aortic (valve) stenosis (4) Primary hypertension Status: Chronic (5) Anemia (6) Cardiac arrest Status: Acute (7) Cardiogenic shock (8) Pericardial effusion (9) Chronic kidney disease, stage 3 Status: Chronic Hospital Course Date of Admission: Dec 20, 2020 at 13:00 Admission Diagnosis : Family Physician/Provider: Lorelei Martinez DO Date of Discharge: 12/26/20 Discharge Diagnosis: [ ] Hospital Course: [ ] Labs and Pending Lab Test: Laboratory Tests 12/26/20 03:37: White Blood Count 8.1, Red Blood Count 2.58L, Hemoglobin 8.1L, Hematocrit 24L, Mean Corpuscular Volume 93, Mean Corpuscular Hemoglobin 31, Mean Corpuscular Hemoglobin Concent 34, Red Cell Distribution Width 13.6, Platelet Count 169, Mean Platelet Volume 10.1, Immature Granulocyte % (Auto) 1, Neutrophils (%) (Auto) 62, Lymphocytes (%) (Auto) 19, Monocytes (%) (Auto) 12, Eosinophils (%) (Auto) 7, Basophils (%) (Auto) 1, Neutrophils # (Auto) 5.0, Lymphocytes # (Auto) 1.5, Monocytes # (Auto) 1.0, Eosinophils # (Auto) 0.6H, Basophils # (Auto) 0.1, Immature Granulocyte # (Auto) 0.0, Sodium Level 136, Potassium Level 3.9, Chloride Level 105, Carbon Dioxide Level 22, Anion Gap 9, Blood Urea Nitrogen 19H, Creatinine 0.81, Estimat Glomerular Filtration Rate 67, BUN/Creatinine Ratio 23, Glucose Level 99, Calcium Level 8.6 Microbiology 12/21/20 Urine Culture - Final, Complete NO GROWTH Home Meds Active Clopidogrel (Clopidogrel Bisulfate) 75 Mg Tablet 75 Mg PO DAILY 30 Days Reported Fluticasone Propionate 16 Gm [place].susp 2 [place] NSEACH DAILY PRN Estradiol Tablet (Estradiol) 0.5 Mg Tablet 0.5 Mg VG SAT,,FR PRN Euthyrox (Levothyroxine Sodium) 50 Mcg Tablet 50 Mcg PO DAILY Aspirin EC (Aspirin) 81 Mg Tablet.dr 81 Mg PO HS Vitamin B-12 (Cyanocobalamin (Vitamin B-12)) 500 Mcg Tablet 500 Mcg PO HS Turmeric 500 mg Capsule (Turmeric/Turmeric Root Extract) 1 Each Capsule 1 Each PO TID Montelukast Sodium 10 Mg Tablet 10 Mg PO DAILY PRN Furosemide 20 Mg Tablet 20 Mg PO DAILY Oxycodon-Acetaminophen 7.5-325 (Oxycodone HCl/Acetaminophen) 1 Each Tablet 1 Each PO Q4H PRN Hydralazine HCl 50 Mg Tablet 50 Mg PO BID Multivitamin 1 Each Tablet 1 Each PO DAILY Magnesium Oxide 400 Mg Tablet 400 Mg PO DAILY Potassium Chloride 10 Meq Tab.er.prt 10 Meq PO DAILY Pantoprazole Sodium 40 Mg Tablet.dr 40 Mg PO HS Carvedilol 6.25 Mg Tablet 6.25 Mg PO BID Losartan Potassium 100 Mg Tablet 100 Mg PO DAILY Discharge Physical Examination Vital Signs Vital Signs Date Time Temp Pulse Resp B/P (MAP) Pulse Ox O2 Delivery O2 Flow Rate FiO2 12/26/20 14:11 36.8 76 16 129/63 95 Room Air 2.00 Allergies: Coded Allergies: atenolol (Unverified Allergy, Unknown, Pt has received Coreg w/o issue, 12/23/20) clindamycin (Unverified Allergy, Unknown, 12/18/20) HIVES AND RASH gabapentin (Unverified Allergy, Unknown, 12/18/20) hydrocodone (Unverified Allergy, Unknown, 12/18/20) PRURITUS, RASH lisinopril (Unverified Allergy, Unknown, 12/18/20) COUGH AND HIVES tizanidine (Unverified Allergy, Unknown, 12/18/20) amlodipine (Unverified Adverse Reaction, Unknown, 12/18/20) SWELLING OF FEET AND LEGS baclofen (Unverified Adverse Reaction, Unknown, 12/18/20) DIZZINESS, SLEEPINESS calcium (Unverified Adverse Reaction, Unknown, 12/18/20) INCREASED CALCIUM LEVELS clonidine (Unverified Adverse Reaction, Unknown, 12/18/20) DROPS BLOOD PRESSURE "TOO FAST" naproxen (Unverified Adverse Reaction, Unknown, 12/18/20) STOMACH ISSUES Discharge Summary Date of Admission Dec 20, 2020 at 13:00 Date of Discharge Dec 26, 2020 at 14:16 Admission Diagnosis Dyspnea Discharge Diagnosis (1) Acute diastolic congestive heart failure Assessment & Plan: Symptomatically improved. Lungs are clear to auscultation today. From a cardiac standpoint, she can probably be discharged home today. (2) Coronary artery disease with unstable angina pectoris Assessment & Plan: She is now status post drug-eluting stent placement to the proximal right coronary artery. She has mild disease in the left anterior descending coronary artery that can be treated medically. Unfortunately, she developed cardiac arrest following the procedure. I am not entirely sure of why this occurred. However, she continues to improve. She will need to continue dual antiplatelet therapy for a minimum of 3 months time. She should continue on beta-fanny and statin medication (3) Aortic stenosis Status: Chronic Assessment & Plan: She has severe aortic stenosis. This is being followed by an outside garage helper. Qualifiers: Qualified Codes: I35.0 - Nonrheumatic aortic (valve) stenosis (4) Primary hypertension Status: Chronic Assessment & Plan: Her blood pressure medication was adjusted over the past couple of days. Her blood pressures have improved. I would avoid aggressively adjusting her antihypertensive medication or she may develop recurrent hypotension. (5) Anemia Assessment & Plan: I suspect this is multifactorial. She did undergo bilateral femoral arterial ultrasounds that did not show any evidence of pseudoaneurysm or AV malformation. I had her undergo an abdominal/pelvic CT scan and this did not show any evidence of retroperitoneal hemorrhage. She did have a hematoma in the left femoral access area. She was also receiving intravenous vasopressors and IV fluid which may have caused some dilution. She has now received 1 blood [facility] sfusion. She needs to continue aspirin and clopidogrel due to the recent coronary stent. These medications should not be held for the anemia. Her hemoglobin has now been stable for several days. (6) Cardiac arrest Status: Acute Assessment & Plan: Soon after returning to her room following the procedure, the patient developed bradycardic cardiac arrest and required CPR for approximately 2 minutes. She was given 1 dose of atropine and she regained spontaneous circulation. However, she was then in shock and required intravenous dopamine and norepinephrine. This now seems to have resolved. I suspect she may have had a profound vagal spell possibly related to pain from the hematoma at the left femoral access site. (7) Cardiogenic shock Assessment & Plan: Exact etiology unclear. Given the degree of aortic stenosis in the setting of cardiac arrest, this may have caused the cardiogenic shock. Fortunately, the shock resolved. (8) Pericardial effusion Assessment & Plan: She had a small pericardial effusion following the procedure. This was not mentioned on her recent echocardiogram from the outside facility several weeks ago. I did not see any obvious coronary perforation. Exact etiology of the effusion is unclear. She had 3 echocardiograms that showed a similar sized pericardial effusion. This will likely resolve spontaneously. (9) Chronic kidney disease, stage 3 Status: Chronic Assessment & Plan: This has remained stable despite her cardiogenic shock and contrast administered during the cardiac catheterization. APURVA SANTANA MD Dec 26, 2020 19:07
== END 2020-12-26 14:16 | disposition home or self-care (01) | DRG 246 ==
LOC: CSD 16:25 → ICU 12-20 12:30 → OBSVTOIN 12-20 13:00 → 4TH 12-24 16:33
PROVIDERS: ADMIT Internal Medicine; ATTEND Internal Medicine
PROC: B2111ZZ Fluoroscopy of Multiple Coronary Arteries using Low Osmolar Contrast (ICD-10-PCS; principal; 2020-12-20)
PROC: 027034Z Dilation of Coronary Artery, One Artery with Drug-eluting Intraluminal Device, Percutaneous Approach (ICD-10-PCS; 2020-12-20)
PROC: B31H1ZZ Fluoroscopy of Right Upper Extremity Arteries using Low Osmolar Contrast (ICD-10-PCS; 2020-12-20)
PROC: 5A12012 Performance of Cardiac Output, Single, Manual (ICD-10-PCS; 2020-12-20)
PROC: 5A09357 Assistance with Respiratory Ventilation, Less than 24 Consecutive Hours, Continuous Positive Airway Pressure (ICD-10-PCS; 2020-12-22)
DX: I13.0 Hypertensive heart and chronic kidney disease with heart failure and stage 1 through stage 4 chronic kidney disease, or unspecified chronic kidney disease (principal); I50.31 Acute diastolic (congestive) heart failure; I46.9 Cardiac arrest, cause unspecified; R57.0 Cardiogenic shock; I31.3 Pericardial effusion (noninflammatory); N18.30 Chronic kidney disease, stage 3 unspecified; I16.0 Hypertensive urgency; I35.0 Nonrheumatic aortic (valve) stenosis; M19.011 Primary osteoarthritis, right shoulder; H54.7 Unspecified visual loss; H91.90 Unspecified hearing loss, unspecified ear; E66.3 Overweight; Z68.27 Body mass index [BMI] 27.0-27.9, adult; I27.20 Pulmonary hypertension, unspecified; I25.110 Atherosclerotic heart disease of native coronary artery with unstable angina pectoris; Z79.82 Long term (current) use of aspirin
CPT/HCPCS: 36140; 36415; 71045; 71046; 74176; 80048; 80053; 80061; 81000; 83735; 84100; 84145; 84484; 85007; 85025; 85027; 85610; 86850; 86900; 86901; 86920; 87088; 93005; 93306; 93308; 93454; 93925; 94660; 94760